=== PATIENT | female | born 1995 | race Caucasian/White ===

== ENCOUNTER 2019-12-11 19:30 | Emergency (ER) | payer MEDICAID, SELFPAY | END 2019-12-11 19:52 | disposition other institution (70) | LOC: ER 03-21 12:11 | PROVIDERS: Emergency Provider Emergency Medicine | DX: Z53.8 Procedure and treatment not carried out for other reasons (principal) | CPT/HCPCS: 99281 ==

== ENCOUNTER 2019-12-11 19:58 | Outpatient (CLI) | payer MEDICAID, SELFPAY ==
[2019-12-11 20:00] VITALS: RESP 18; TEMP 36.8
[2019-12-11 20:33] VITALS: BMI 59.4
[2019-12-11 20:37] LABS: Add Urine Microscopic? NO
[2019-12-11 21:55] LABS: Bilirubin Urine Neg (NEGATIVE); Blood Urine Neg (Negative); Glucose Urine UA Norm (Normal); Ketones Urine Negative (Negative); Leukocyte Esterase Urine Negative (Negative); Nitrate Urine Negative (Negative); Protein Urine Neg (Negative); Specific Gravity, Urine 1.005 (1.005-1.030); Urine Appearance Clear (CLEAR); Urine Color Straw (Yellow); Urobilinogen Urine Norm (Negative); pH Urine 7 (5-7)
== END 2019-12-11 22:05 | disposition home or self-care (01) ==
LOC: OPOB 20:04 → OBGYN 20:04
PROVIDERS: Visit Provider Family Medicine
DX: O26.899 Other specified pregnancy related conditions, unspecified trimester (principal); Z3A.00 Weeks of gestation of pregnancy not specified; R10.30 Lower abdominal pain, unspecified
CPT/HCPCS: 81003; 99211

== ENCOUNTER 2020-02-08 09:10 | Outpatient (CLI) | payer MEDICAID, SELFPAY ==
[2020-02-08 09:49] LABS: Bilirubin Urine Neg (NEGATIVE); Blood Urine Neg (Negative); Glucose Urine UA Norm (Normal); Ketones Urine Negative (Negative); Leukocyte Esterase Urine Trace (Negative); Nitrate Urine Negative (Negative); Protein Urine Neg (Negative); Urine Appearance SL Hazy (CLEAR); Urine Color Yellow (Yellow); Urobilinogen Urine Norm (Negative)
[2020-02-08 09:50] LABS: Add Urine Culture? No; Bacteria Urine 2+; Mucus Urine 1+; RBC Urine RARE /hpf (0-2); WBC Urine 0-4 /hpf (0-5)
[2020-02-08 09:55] VITALS: BP 125/78; PULSE 69; RESP 18; TEMP 36.7
[2020-02-08 10:05] VITALS: BMI 29.3
--- NOTE | 2020-02-08 10:25 | PC.NURSE ---
THIS SPINNER HAND PUT PATIENT ON MONITOR AT 0925. 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
== END 2020-02-08 10:25 | disposition home or self-care (01) ==
LOC: OPOB 09:20 → OBGYN 02-09 07:49
PROVIDERS: Visit Provider Obstetrics & Gynecology
DX: O23.40 Unspecified infection of urinary tract in pregnancy, unspecified trimester (principal); Z3A.00 Weeks of gestation of pregnancy not specified
CPT/HCPCS: 59025; 81001; 99211

== ENCOUNTER → 2020-02-09 11:09 | Outpatient (BNVA) | payer MEDICAID, SELFPAY | PROVIDERS: Visit Provider Obstetrics & Gynecology | DX: Z34.90 Encounter for supervision of normal pregnancy, unspecified, unspecified trimester (principal); R30.0 Dysuria | CPT/HCPCS: 80053; 81000 ==

== ENCOUNTER 2020-02-14 02:11 | Inpatient (IN) | payer MEDICAID, SELFPAY ==
[2020-02-14] VITALS (39 sets, daily range): BP systolic 0–182; BP diastolic 0–104; PULSE 51–86; RESP 18; TEMP 36.8–37; O2SAT 99
--- NOTE | 2020-02-14 03:31 | US_ITS ---
WS: [id number] ULTRASOUND OB LIMITED TECHNIQUE: Limited ultrasound examination of the fetus. CLINICAL INFORMATION: measurements and placental placement COMPARISON: None. FINDINGS: Closed cervix Single interuterine gestation. Placental location is posterior. Placenta grade: 0. heart rate 136 BPM. Anatomy: BDP: 8.4 cm = HC: 29.9 cm = 33w1d AC: 29.5 cm = 33w3d FEMUR LENGTH: 6.2 cm = 32w2d Estimated weight: 2119 g., 57 %. EGA by ultrasound: 33 weeks 1 day SIMON by ultrasound: 04/02/2020 US/US OB limited [id number] IMPRESSION: 1. Cervix measures 4.2 CM. 2. Estimated gestational age 33 weeks 1 day with estimated delivery April 02, 2020. 3. Normal for dates.
[2020-02-14 04:05] LABS: Actim Prom Positive
[2020-02-14 04:15] LABS: Urine Color Yellow (Yellow)
[2020-02-14 04:16] LABS: Add Urine Microscopic? YES; Bacteria Urine TRACE; Bilirubin Urine Neg (NEGATIVE); Blood Urine Neg (Negative); Glucose Urine UA Norm (Normal); Ketones Urine Negative (Negative); Leukocyte Esterase Urine Negative (Negative); Nitrate Urine Negative (Negative); Protein Urine 2+ (Negative); RBC Urine RARE /hpf (0-2); Squamous Epithelial Cell Urine 0-4 (0-5); Urine Appearance Clear (CLEAR); Urobilinogen Urine Norm (Negative); WBC Urine 0-4 /hpf (0-5); pH Urine 6.5 (5-7)
[2020-02-14 05:25] LABS: Urine Creatinine 56 mg/dL (28-217)
[2020-02-14 05:38] LABS: UPRO/UCREAT Ratio 2.93 mg/mg CR; Urine Protein Random 164 mg/dL
[2020-02-14] MEDS: betamethasone susp 6 mg/mL 5 mL 12 MG IM ×2 (06:09→06:19)
--- NOTE | 2020-02-14 06:20 | PM.OBGYHP ---
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 She presented to labor and delivery at 02:10 on 02/14/2020 with complaint of vaginal bleeding. She reported that approximately 01:30 this morning, she had gotten up to urinate and while sitting on the toilet, thought something felt weird. When she looked in the toilet she stated that the toilet was full of blood . She reported that she was having mild back pain at the time. She denied any injuries or falls. She reported the baby had been moving well. On arrival at the hospital she was found to have blood present on her perineum with blood present on vaginal exam by the nurse. As she was being monitored, she was noted to have elevated blood pressures and these had continued to increase until they were considered in the severe range. As a result preeclamptic labs were ordered. At the time of my evaluation, patient was reporting having more lower back pain and was now starting to have some abdominal pain as well. She stated that her abdominal pain was mainly located on the left side. She denied any headaches, vision changes, upper abdominal pain prior to the recent start of the abdominal pain in the hospital. She reported some mild swelling. Patient had been receiving care at the [facility] in [place] and recently transferred to my care due to having moved to the area. She had her first visit in my office on 02/09/2020. Some records were available from the [facility], but this mainly included the initial visit and initial labs. Rest of the records have been requested but have not been received yet. Available Labs === Lab results from [facility] === 10/04/2019 Blood type: O positive. Antibody screen: Negative. Intake CBC: WBC 6.5, Hgb 13.2, Hct 38.9, MCV 87.2, Plt 176. TSH: 3.50. Free T4: 1.15. Rubella: Immune. Hepatitis B surface antigen: Nonreactive. RPR: Nonreactive. HIV: Nonreactive. Cystic fibrosis screen: Declined. Urine drug screen: Not performed. Urine culture: No growth. Gonorrhea: Negative. Chlamydia: Negative. Pap smear: Negative for intraepithelial lesion or malignancy. Obstetrical Ultrasounds No ultrasound reports were sent with the records. These had been requested at last visit. Review of Systems Const: Denies: fever(s) or chills Eyes: Denies: change in vision ENMT: Denies: throat pain or nasal congestion Card: Reports: swelling of feet/ankles; Denies: chest pain, palpitations or lightheadedness Resp: Denies: dyspnea, productive cough, non-productive cough or wheezing GI: Reports: abdominal pain; Denies: nausea, vomiting, diarrhea or constipation : Reports: urinary frequency and vaginal bleeding; Denies: difficulty voiding, dysuria, urinary urgency, genital pruritis or vaginal discharge Musc: Reports: back pain Neuro: Denies: headache(s), dizziness or seizure-like activity Psych: Denies: anxiety or depression Endo: Denies: cold intolerance Edgardo/Lymph: Denies: easy bruising or easy bleeding Medications/Allergies Home Medications Medication Instructions Recorded Confirmed Last Taken Type [id number] See Rx Instructions .ROUTE .COMPLEX 12/11/19 02/09/20 02/13/20 22:00 History [] Allergies Allergy/AdvReac Type Severity Reaction Status Date / Time No Known Allergies Allergy Verified 02/09/20 11:26 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 Surgical History History of tonsillectomy age 8 Family History Grandmother Cancer Breast Grandfather Dementia Father Diabetes Social History Smoking and tobacco status: never smoked Alcohol intake: current Alcohol intake frequency: holidays/special occasions only Substance/Drug Use: never Other details last substance use: Denies drug use Other Female Reproductive History: Hx Age of Menarche: 13 Duration of menses: 3-5 days Date of Last Menstrual Period: 06/18/19 Cycle Length: 28 to 30 d Menstrual flow: normal/abnormal: heavy History History History 1 Term 0 Miscarriages/Ectopic 0 0 Living Children 0 Care SIMON Calculator Estimated Delivery Date Method Current WG Current Estimate 03/30/20 Manual 33w 4d per patient Other Estimates 03/24/20 LMP (Uncertain) 34w 3d Expected Delivery Route/Plan Vaginal delivery Specific Issues/Plans Transfer of care from [facility] at 32 weeks Hypothyroidism. Vitals/I&O/Wt Last Vital Signs Temp 98.5 F 02/14/20 02:38 Pulse 51 L 02/14/20 06:07 BP 182/104 02/14/20 06:07 Physical Exam Const: COMMON NORMALS: no acute distress, average body habitus, alert and well nourished GENERAL APPEARANCE: cooperative, well developed and anxious ORIENTATION/CONSCIOUSNESS: Yes oriented to person, Yes oriented to place and Yes oriented to time Neck/C-Spine: COMMON NORMALS: Thyroid normal GENERAL: Yes trachea midline THYROID: Thyroid normal Resp: COMMON NORMALS: normal respiratory effort and clear to auscultation bilaterally AUSCULTATION: clear to auscultation bilaterally Cardio: COMMON NORMALS: regular rate, regular rhythm, No gallops present (Cardio) and No rub (Cardio) RATE: regular rate RHYTHM: regular rhythm GI: COMMON NORMALS: Soft to palpation, non-tender, No hepatosplenomegaly present and no masses (Except for gravid uterus) INSPECTION: Yes gravid abdomen AUSCULTATION: Yes normoactive bowel sounds PALPATION: Yes Soft to palpation, Yes No hepatosplenomegaly present and No Hernia present : EXTERNAL FEMALE EXAM: No Hernia present OTHER: Uterus: Tender to palpation Neuro: SENSORIUM/ORIENTATION: Yes alert, Yes oriented to person, Yes oriented to place and Yes oriented to time Psych: COMMON NORMALS: normal affect MOOD & AFFECT: Yes euthymic mood Skin: COMMON NORMALS: no rashes or lesions noted GENERAL SKIN EXAM: no rashes or lesions noted Data Other Labs: 02/14/2020 Urine dipstick (catheterized): Specific gravity 1.010, protein 2+, glucose negative, ketones negative, urine blood negative, nitrate negative, leukocyte esterase negative, RBCs rare, WBC 0-4, squamous cells 0-4, bacteria trace. Urine protein/creatinine ratio (catheterized): 2.93 US OB: My impression: 02/14/2020: Limited obstetrical ultrasound 33-1/7 weeks gestation based on measurements today. Estimated weight 4 lbs 11 oz (2119 g). 49th percentile. Cephalic presentation. heart rate 136 bpm. Posterior placenta without previa. No evidence of abruption seen on ultrasound. Cervix 4.2 cm in length and visually closed. Other data: monitoring: heart rate in the 130s with moderate variability and accelerations present. No decelerations noted. Category 1 tracing. Irregular contractions present. A&P Assessment and plan (1) Severe pre-eclampsia, third trimester: at 33-4/7 weeks gestation Patient found to have elevated blood pressures in L&D which have reached severe ranges with systolic blood pressures in the 160s to 170s with diastolic blood pressures in the 90s to 100s. Urine dipstick had shown 2+ protein on a catheterized sample. Urine protein/creatinine ratio was 2.9. Based upon these findings, she has been diagnosed with severe preeclampsia. This diagnosis was discussed with the patient and her partner. Problems associated with preeclampsia including seizures, strokes, vision loss, pulmonary edema, liver and spleen problems, low urine output and acute renal failure was discussed. Potential this causing placental abruption was also discussed. Discussed with her that cure for preeclampsia is delivery, but timing of delivery depends upon gestational age and severity of symptoms. Medication use for control of blood pressure was discussed. Use of magnesium sulfate for prevention of seizures and its side effects were discussed. Questions were answered. Due to her early gestational age, I am recommending referral [facility] that has ICU facilities due to the probable early delivery. Questions were answered. Patient and her partner are requesting referral to [facility] in [place] since she was originally being followed through 1 of the [facility] clinics before transferring to our area. She is being started on magnesium sulfate, 4 g load and then 2 g/h. Labetalol has been ordered for blood pressure control. CBC, CMP, and serum uric acid have been ordered and are pending. Betamethasone 12 mg IM has been ordered and given due to prematurity and probable need for early delivery. Ampicillin has been ordered due to unknown GBS status since she has not had the testing performed yet. Status: Acute (2) Placental abruption in third trimester: Patient presented with vaginal bleeding and back pain. She is now developed uterine tenderness on exam. These are all findings that are consistent with placental abruption. With her diagnosis of severe preeclampsia the abruption most likely is secondary to the preeclampsia. Other potential causes for abruption were discussed with her. Questions were answered. Ultrasound had been performed which showed a posterior placenta without previa. No evidence of abruption seen on the ultrasound. Status: Acute (3) Hypothyroidism affecting : Patient has hypothyroidism. She reports she has not taken her medication for approximately 2 months at this time. Status: Acute Qualifiers: Trimester: third trimester Qualified Code(s): O99.283 - Endocrine, nutritional and metabolic diseases complicating , third trimester; E03.9 - Hypothyroidism, unspecified Attestations Medical Necessity Statement*: Patient has been diagnosed with severe preeclampsia with placental abruption. 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
[2020-02-14] MEDS: labetalol 5 mg/mL SDV 20mL 20 MG IVP (06:32)
[2020-02-14] MEDS: magnesium sulfate premix 4 GM/100 ML PREMIX IV (06:47)
[2020-02-14] MEDS: dextrose 5%-lactated ringers 1,000 ML 125 ML IV (06:47)
[2020-02-14 06:53] LABS: Basophils # 0.1 10^3/uL (0.0-0.1); Basophils % 0.6 %; Eosinophils # 0.2 10^3/uL (0.0-0.8); Eosinophils % 1.9 %; Hematocrit 38.3 % (37.0-47.0); Hemoglobin 12.9 g/dL (11.5-15.3); Lymphocytes # 2.6 10^3/uL (0.8-4.8); Mean Corpuscular HGB Conc 33.7 g/dL (30.0-36.0); Mean Corpuscular Hemoglobin 30.1 pg (28.0-34.0); Mean Corpuscular Volume 89.3 fL (81-99); Mean Platelet Volume 12.3 fL (7.4-10.4); Monocytes # 0.7 10^3/uL (0.2-0.9); Monocytes % 6.8 %; Neutrophils # 6.47 10^3/uL (1.8-7.7); Neutrophils % 64.4 %; Nucleated Red Blood Cells % 0 %; Platelet Count 98 10^3/cmm (130-400); Red Blood Count 4.29 10^6/uL (4.1-5.3); Red Cell Distribution Width 14.2 % (12.1-15.1)
[2020-02-14] MEDS: ampicillin 2,000 MG in sodium chloride 0.9% (plus) 50 ML 100 MG IV (06:54)
[2020-02-14 07:02] LABS: Alanine Aminotransferase 34 U/L (0-33); Albumin Level 3.4 g/dL (3.5-5.2); Alkaline Phosphatase 140 IU/L (35-105); Anion Gap 13.8 (5-19); Aspartate Amino Transferase 34 U/L (0-32); Blood Urea Nitrogen 7 mg/dL (6-20); Calcium 8.8 mg/dL (8.5-10.5); Carbon Dioxide 19 mmol/L (22-29); Chloride 107 mmol/L (98-107); Globulin 2.5 g/dL (1.3-4.6); Glomerular Filtration Rate 152.9 mL/min (90-130); Glucose 82 mg/dL (65-115); Osmolality Calculated 277 mOsm/kg (285-295); Potassium 3.8 mmol/L (3.5-5.1); Sodium 136 mmol/L (136-145); Total Bilirubin 0.3 mg/dL (0.15-1.2); Total Protein 5.9 g/dL (6.6-8.7); Uric Acid 5.9 mg/dL (2.4-5.7)
[2020-02-14] MEDS: magnesium sulfate premix 20 GM/500 ML BAG IV (07:09)
--- NOTE | 2020-02-14 09:34 | P.TS_ITS ---
Transfer Summary Providers Date of Admission: 02/14/2020 Date of Discharge: 02/14/20 Attending Provider at Admission: Devaughn Avina MD Attending Provider at Transfer: Devaughn Avina MD Anticipated Date of Transfer: Anticipated date of transfer: 02/14/20 Receiving Facility & Provider: Receiving Provider: Dr. Boone Receiving facility: [facility] in [place], [place] Diagnoses at Discharge Discharge Diagnosis (1) Severe pre-eclampsia, third trimester: Status: Acute (2) Placental abruption in third trimester: Status: Acute (3) Hypothyroidism affecting : Status: Acute Qualifiers: Trimester: third trimester Qualified Code(s): O99.283 - Endocrine, nutritional and metabolic diseases complicating , third trimester; E03.9 - Hypothyroidism, unspecified Reason for Visit Reason for Visit: VAGINAL BLEEDING Hospital Course Hospital Course: Patient is a 24-year-old white female, 1, para 0 with an unsure LMP of 06/18/2019 and an EDC of 03/30/2020 per her report, which placed her at 33-4/7 weeks gestation. She presented to labor and delivery complaining of vaginal bleeding. She had gotten up to urinate and noticed afterwards that the toilet was full of blood . She then came to labor and delivery. She was found to have blood present on her perineum with blood present vaginally per the nurse. As she was being monitored, she was noted to have elevated blood pressures which increased and were found to be in the severe range. Protein creatinine ratio was performed which was 2.93. Based upon this she was diagnosed with severe preeclampsia. She was felt to also most likely to have had a mild placental abruption. Patient was started on magnesium sulfate for seizure prophylaxis. She received a 4 g load and then switched to 2 g/h. She also received her first dose of betamethasone 12 mg IM and was then started on ampicillin due to unknown GBS status. Her blood pressure was treated with labetalol. She received 1 dose of 20 mg. She had an ultrasound performed which showed a cephalic presentation. She had a posterior placenta without previa noted. No evidence of abruption seen on the ultrasound. Laboratory data had shown low platelets of 98,000 with minimally elevated liver enzymes (AST of 34 and ALT of 34). At this point patient is stable. She is having rare contractions at this time. She has a category 1 heart rate tracing with baseline heart rate in the 130s with minimal variability at this time. Accelerations are present. No decelerations were noted. Blood pressure is no longer in the severe range. Due to prematurity, transferred to higher level care facility with NICU capabilities have been discussed with the patient and her partner. They have requested transfer to [facility] in [place] since she had been receiving care through the [facility] in [place] prior to our area and transferring care to myself. [facility] was contacted and the case was discussed with Dr. Boone who has accepted care. Arrangements are being made for ground transport. Magnesium load started at 06:47 Betamethasone given at 06:09 Ampicillin started for GBS prophylaxis at 06:54 Labetalol given at 06:52 Physical Exam Const: COMMON NORMALS: no acute distress, average body habitus, alert and well nourished GENERAL APPEARANCE: well developed ORIENTATION/CONSCIOUSNESS: Yes oriented to person, Yes oriented to place and Yes oriented to time GI: COMMON NORMALS: Soft to palpation, non-tender, No hepatosplenomegaly present and no masses (Except for tender gravid uterus) INSPECTION: Yes gravid abdomen AUSCULTATION: Yes normoactive bowel sounds PALPATION: Yes Soft to palpation, Yes No hepatosplenomegaly present and No Hernia present : EXTERNAL FEMALE EXAM: No Hernia present Neuro: SENSORIUM/ORIENTATION: Yes alert, Yes oriented to person, Yes oriented to place and Yes oriented to time Psych: COMMON NORMALS: normal affect MOOD & AFFECT: Yes euthymic mood TS Data Data Completed and Pending: Completed Studies During Hospitalization Category Date Time Status US OB limited 768 15 Routine Ultrasound 02/14/20 03:31 Completed Pending at discharge Category Date Time Status Drug Screen, Urin e Routine Lab 02/14/20 06:10 Uncollected Labs from last 24 hours 02/14/20 02/14/20 02/14/20 06:20 06:20 03:00 WBC 10.0 RBC 4.29 Hgb 12.9 Hct 38.3 MCV 89.3 MCH 30.1 MCHC 33.7 RDW 14.2 Plt Count 98 L MPV 12.3 H Neut % (Auto) 64.4 Lymph % (Auto) 26.0 [place] % (Auto) 6.8 Eos % (Auto) 1.9 Baso % (Auto) 0.6 Neut # (Auto) 6.47 Lymph # (Auto) 2.6 [place] # (Auto) 0.7 Eos # (Auto) 0.2 Baso # (Auto) 0.1 Nucleated RBC % (a uto) 0 Nucleated RBCs # 0.0 Sodium 136 Potassium 3.8 Chloride 107 Carbon Dioxide 19 L Anion Gap 13.8 BUN 7 Creatinine 0.5 GFR Calculation 152.9 H Glucose 82 Calculated Osmolal ity 277 L Uric Acid 5.9 H Calcium 8.8 Total Bilirubin 0.3 AST 34 H ALT 34 H Alkaline Phosphata se 140 H Total Protein 5.9 L Albumin 3.4 L Globulin 2.5 Insulin-like GF I Urine Color Urine Appearance Urine pH Ur Specific Gravit y Urine Protein Urine Glucose (UA) Urine Ketones Urine Blood Urine Nitrate Urine Bilirubin Urine Urobilinogen Ur Leukocyte Tena ase Urine RBC Urine WBC Ur Squamous Epith Cells Amorphous Sediment Urine Bacteria U Random Total Pro tein 164 Urine Creatinine 56 Protein/Creatinin Ratio 2.93 02/14/20 02/14/20 03:00 03:00 WBC RBC Hgb Hct MCV MCH MCHC RDW Plt Count MPV Neut % (Auto) Lymph % (Auto) [place] % (Auto) Eos % (Auto) Baso % (Auto) Neut # (Auto) Lymph # (Auto) [place] # (Auto) Eos # (Auto) Baso # (Auto) Nucleated RBC % (a uto) Nucleated RBCs # Sodium Potassium Chloride Carbon Dioxide Anion Gap BUN Creatinine GFR Calculation Glucose Calculated Osmolal ity Uric Acid Calcium Total Bilirubin AST ALT Alkaline Phosphata se Total Protein Albumin Globulin Insulin-like GF I Positive Urine Color Yellow Urine Appearance Clear Urine pH 6.5 Ur Specific Gravit y 1.010 Urine Protein 2+ H Urine Glucose (UA) Norm Urine Ketones Negative Urine Blood Neg Urine Nitrate Negative Urine Bilirubin Neg Urine Urobilinogen Norm Ur Leukocyte Tena ase Negative Urine RBC Rare Urine WBC 0-4 H Ur Squamous Epith Cells 0-4 H Amorphous Sediment Not Reportable Urine Bacteria Trace U Random Total Pro tein Urine Creatinine Protein/Creatinin Ratio Vitals: Last Vital Signs Temp 98.5 F 02/14/20 02:38 Pulse 69 02/14/20 09:23 BP 133/82 02/14/20 09:23 TS Medications Medications Home Medications [id number] fumarate-FA [] See Rx Instructions .ROUTE .COMPLEX 12/11/19 [History Confirmed 02/09/20] Active Medications Acetaminophen (Tylenol) 650 mg PO Q6H PRN PRN Reason: Mild pain or temp > 100.4 Al Hydrox/Mg Hydrox/Simethicone (Maalox) 30 ml PO Q4H PRN PRN Reason: INDIGESTION Calcium Gluconate (Calcium Gluconate) 1 gm IVP ONCE PRN PRN Reason: Reversal of Magnesium Sulfate Carboprost Tromethamine (Hemabate) 250 mcg IM ONCE PRN PRN Reason: 3rd line bleeding Ephedrine Sulfate (Ephedrine) 10 mg IVP Q3M PRN PRN Reason: hypotension as directed by Hydroxyzine Pamoate (Vistaril) 50 mg PO QID PRN PRN Reason: sleep, agitation or itching Dextrose/Lactated Ringer's (Dextrose 5%-Lactated Ringers) 1,000 mls @ 125 mls/hr IV .Q8H [facility] Last Admin: 02/14/20 06:47 Dose: 125 mls/hr Documented by: Magnesium Sulfate (Magnesium Sulfate Premix) 20 gm in 500 mls @ 50 mls/hr IV .Q10H [facility] Last Admin: 02/14/20 07:09 Dose: 50 mls/hr Documented by: Oxytocin (Pitocin) 30 unit in 500 mls @ 600 mls/hr IV .Q50M PRN; Protocol PRN Reason: After delivery of infant Lactated Ringer's (Lactated Ringers) 1,000 mls @ 999 mls/hr IV .Q1H1M PRN PRN Reason: BLEEDING Lactated Ringer's (Lactated Ringers) 1,000 mls @ 999 mls/hr IV .Q1H1M PRN PRN Reason: Per L&D Rescitation Protocol Tranexamic Acid 1,000 mg/ (Sodium Chloride) 110 mls @ 330 mls/hr IV Q30M PRN PRN Reason: BLEEDING Ampicillin Sodium 2,000 mg/ (Sodium Chloride) 50 mls @ 100 mls/hr IV ONCE [facility]; Protocol Last Admin: 02/14/20 06:54 Dose: 100 mls/hr Documented by: Lidocaine HCl (Lidocaine 2%) 0 ml INJECTION ONCE PRN PRN Reason: perineum repair after delivery Lidocaine HCl (Lidocaine 1%) 0.1 ml INTRADERMA PRN PRN PRN Reason: Anesthetic Prior to IV start Metoclopramide HCl (Reglan) 10 mg IV ONCE PRN PRN Reason: N/V not relieved by zofran Misoprostol (Cytotec) 800 mcg SC ONCE PRN PRN Reason: 1st line bleeding Ondansetron HCl (Zofran) 4 mg IVP Q4H PRN PRN Reason: NAUSEA AND VOMITING Oxytocin (Pitocin) 20 unit IM ONCE PRN PRN Reason: 4th line bleeding Oxytocin (Pitocin) 20 unit IV ONCE PRN PRN Reason: 4th line bleeding Discharge Plan Discharge Patient Disposition: Xfer Other Prescriptions: No Action 28-800 mg-mcg Tablet See Rx Instructions .ROUTE .COMPLEX RF: 0 Discharge Orders: Transfer Out of Facility (Order); Ordered 02/14/20 Ordered By: Devaughn Avina Transfer Attestations Time Spent in Transfer Care*: less than 30 min Status at Transfer: Cognitive status at transfer: cognitively intact , Behavioral status at transfer: cooperative , Quality Metrics Clinical Quality Measures: During this hospital stay, did patient experience: None Coding Level of Care Code 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
== END 2020-02-14 10:15 | disposition short-term general hospital (02) | DRG 833 ==
LOC: OPOB 02:23 → OBGYN 08:53 → OPOB 11:05 → OBGYN 11:05
PROVIDERS: Admitting Provider Obstetrics & Gynecology; Visit Provider Obstetrics & Gynecology
DX: O45.8X3 Other premature separation of placenta, third trimester (principal); Z3A.33 33 weeks gestation of pregnancy; O14.14 Severe pre-eclampsia complicating childbirth; O99.283 Endocrine, nutritional and metabolic diseases complicating pregnancy, third trimester; E03.9 Hypothyroidism, unspecified
CPT/HCPCS: 12345; 36415; 51702; 59025; 76815; 80053; 81001; 81003; 82570; 84112; 84156; 84550; 85025; 96372; 96375; J0290; J0702; J3475; J3490

== ENCOUNTER 2020-09-02 07:20 | Emergency (ER) | payer MEDICAID, SELFPAY ==
[2020-09-02 07:31] VITALS: BP 126/72; PULSE 87; RESP 16; TEMP 36.2; O2SAT 99; BMI 25.0
[2020-09-02 07:39] VITALS: O2SAT 100
--- NOTE | 2020-09-02 07:41 | ED_ITS ---
HPI - Abdominal Pain General: Chief Complaint: Abdominal Pain Stated Complaint: Rt side ABD pain Time Seen by Provider: 09/02/20 07:22 History of Present Illness: HPI narrative: 24-year-old female presents emergency room with complaints of right lower quadrant abdominal pain that began around 330 this morning. She states she can get a little improvement with the change she massages in that area she denies fever sweats chills nausea vomiting or diarrhea. No dysuria urgency or frequency no hematuria. She states her periods have been regular she does not believe she is at this time. She is not had any fever she has no significant appetite. MD elicited complaint: abdominal pain Onset (ago): hour(s) Pain Consistency: constant Location: RLQ Severity: moderate Quality: cramping Exacerbating factors: movement and other (palpation) Relieving factors: rest Associated Symptoms: Reports anorexia, bloating and GI cramping; Denies belching, change in bowel habits, change in stool character, chills, coffee ground emesis, constipation, diarrhea, dyspepsia, dysuria, excessive flatus, fever(s), heartburn, hematochezia, hematuria, hematemesis, fecal incontinence, loose stools, melena, nausea, poor appetite, syncope and vomiting Related Data: Date of Last Menstrual Period: 08/26/20 Review of Systems Const: Denies: fever(s) or chills ENMT: Denies: throat pain, ear or mastoid pain, nasal discharge or nasal congestion Card: Denies: syncope Resp: Denies: dyspnea, productive cough or non-productive cough GI: Reports: bloating and GI cramping; Denies: nausea, vomiting, hematemesis, coffee ground emesis, heartburn, diarrhea, constipation, belching, excessive flatus, fecal incontinence, change in bowel habits, change in stool character, hematochezia or melena : Denies: dysuria or hematuria Skin/Breast: Denies: rash or pruritus PFSH ED PFSH: Medical History (Updated 09/02/20 @ 09:16 by Derek Devlin DO) Hypothyroid Per records, patient had been taking [place] Thyroid. Surgical History History of tonsillectomy age 8 Family History Grandmother Cancer Breast Grandfather Dementia Father Diabetes Social History Smoking and tobacco status: never smoked Alcohol intake: current Alcohol intake frequency: holidays/special occasions only Other details last substance use: Denies drug use Female Reproductive History: Date of last menstrual period: 08/26/20 Physical Exam Const: COMMON NORMALS: no acute distress GENERAL APPEARANCE: cooperative and comfortable ORIENTATION/CONSCIOUSNESS: Yes awake, Yes oriented to person, Yes oriented to place and Yes oriented to time HENMT: COMMON NORMALS: normocephalic, atraumatic and hearing grossly normal bilaterally HEAD & SCALP: normocephalic and atraumatic Neck/C-Spine: COMMON NORMALS: no JVD Resp: COMMON NORMALS: normal respiratory effort, No retractions, No use of accessory muscles and clear to auscultation bilaterally AUSCULTATION: clear to auscultation bilaterally Cardio: COMMON NORMALS: no JVD, regular rate, regular rhythm and No murmurs present (Cardio) RATE: regular rate RHYTHM: regular rhythm GI: COMMON NORMALS: No hepatosplenomegaly present AUSCULTATION: Yes normoactive bowel sounds PALPATION: Yes Tenderness to palpation present (GI) Details: RLQ and Yes No hepatosplenomegaly present Extremity: COMMON NORMALS: normal to inspection, capillary refill normal, no clubbing, cyanosis or edema, no calf tenderness and no pedal edema Neuro: SENSORIUM/ORIENTATION: Yes oriented to person, Yes oriented to place and Yes oriented to time Skin: COMMON NORMALS: no rashes or lesions noted GENERAL SKIN EXAM: no rashes or lesions noted Course Vital Signs: Vital signs: Vital Signs Temperature 97.2 F L 09/02/20 07:31 Pulse Rate 84 09/02/20 09:40 Respiratory Rate 16 09/02/20 07:31 Blood Pressure 175/90 09/02/20 09:40 Pulse Oximetry 98 09/02/20 09:40 MDM - Abdominal Pain MDM Narrative: Medical decision making narrative: There are some constipation additionally she has a little bit of pelvic fluid she is midcycle. Treat for cystitis push fluids if has any worsening problems recheck Lab Data: Labs: Lab Results 09/02/20 09/02/20 09/02/20 Range/Units 07:45 07:45 07:45 WBC 8.8 (4.0-10.0) 10^3/ uL RBC 4.65 (4.1-5.3) 10^6/u L Hgb 13.5 (11.5-15.3) g/dL Hct 40.8 (37.0-47.0) % MCV 87.7 (81-99) fL MCH 29.0 (28.0-34.0) pg MCHC 33.1 (30.0-36.0) g/dL RDW 12.4 (12.1-15.1) % Plt Count 202 (130-400) 10^3/c mm MPV 10.0 (7.4-10.4) fL Neut % (Auto) 65.5 % Lymph % (Auto) 23.6 % [place] % (Auto) 8.0 % Eos % (Auto) 2.1 % Baso % (Auto) 0.5 % Neut # (Auto) 5.74 (1.8-7.7) 10^3/u L Lymph # (Auto) 2.1 (0.8-4.8) 10^3/u L [place] # (Auto) 0.7 (0.2-0.9) 10^3/u L Eos # (Auto) 0.2 (0.0-0.8) 10^3/u L Baso # (Auto) 0.0 (0.0-0.1) 10^3/u L Nucleated RBC % (a uto) 0 % Nucleated RBCs # 0.0 /100WBC Sodium 137 (136-145) mmol/L Potassium 3.6 (3.5-5.1) mmol/L Chloride 104 (98-107) mmol/L Carbon Dioxide 25 (22-29) mmol/L Anion Gap 11.6 (5-19) BUN 7 (6-20) mg/dL Creatinine 0.5 (0.5-0.9) mg/dL GFR Calculation 152.9 H (90-130) mL/min Glucose 102 (65-115) mg/dL Calculated Osmolal ity 282 L (285-295) mOsm/k g Calcium 9.1 (8.5-10.5) mg/dL Total Bilirubin 0.4 (0.15-1.2) mg/dL AST 15 (0-32) U/L ALT 16 (0-33) U/L Alkaline Phosphata se 69 (35-105) IU/L Total Protein 6.8 (6.6-8.7) g/dL Albumin 4.1 (3.5-5.2) g/dL Globulin 2.7 (1.3-4.6) g/dL Lipase 15 (13-60) U/L HCG, Qual Negative (Negative) Urine Color (Yellow) Urine Appearance (CLEAR) Urine pH (5-7) Ur Specific Gravit y (1.005-1.030) Urine Protein (Negative) Urine Glucose (UA) (Normal) Urine Ketones (Negative) Urine Blood (Negative) Urine Nitrate (Negative) Urine Bilirubin (Negative) Urine Urobilinogen (Negative) mg/dL Ur Leukocyte Tena ase (Negative) Urine RBC (0-2) /hpf Urine WBC (0-5) /hpf Ur Squamous Epith Cells (0-5) /hpf Amorphous Sediment Urine Bacteria (NONE) /hpf 09/02/20 Range/Units 07:51 WBC (4.0-10.0) 10^3/ uL RBC (4.1-5.3) 10^6/u L Hgb (11.5-15.3) g/dL Hct (37.0-47.0) % MCV (81-99) fL MCH (28.0-34.0) pg MCHC (30.0-36.0) g/dL RDW (12.1-15.1) % Plt Count (130-400) 10^3/c mm MPV (7.4-10.4) fL Neut % (Auto) % Lymph % (Auto) % [place] % (Auto) % Eos % (Auto) % Baso % (Auto) % Neut # (Auto) (1.8-7.7) 10^3/u L Lymph # (Auto) (0.8-4.8) 10^3/u L [place] # (Auto) (0.2-0.9) 10^3/u L Eos # (Auto) (0.0-0.8) 10^3/u L Baso # (Auto) (0.0-0.1) 10^3/u L Nucleated RBC % (a uto) % Nucleated RBCs # /100WBC Sodium (136-145) mmol/L Potassium (3.5-5.1) mmol/L Chloride (98-107) mmol/L Carbon Dioxide (22-29) mmol/L Anion Gap (5-19) BUN (6-20) mg/dL Creatinine (0.5-0.9) mg/dL GFR Calculation (90-130) mL/min Glucose (65-115) mg/dL Calculated Osmolal ity (285-295) mOsm/k g Calcium (8.5-10.5) mg/dL Total Bilirubin (0.15-1.2) mg/dL AST (0-32) U/L ALT (0-33) U/L Alkaline Phosphata se (35-105) IU/L Total Protein (6.6-8.7) g/dL Albumin (3.5-5.2) g/dL Globulin (1.3-4.6) g/dL Lipase (13-60) U/L HCG, Qual (Negative) Urine Color Yellow (Yellow) Urine Appearance Sl hazy (CLEAR) Urine pH 5 (5-7) Ur Specific Gravit y 1.025 (1.005-1.030) Urine Protein Neg (Negative) Urine Glucose (UA) Norm (Normal) Urine Ketones Negative (Negative) Urine Blood Neg (Negative) Urine Nitrate Negative (Negative) Urine Bilirubin Neg (Negative) Urine Urobilinogen Norm (Negative) mg/dL Ur Leukocyte Tena ase 2+ H (Negative) Urine RBC None (0-2) /hpf Urine WBC 25-40 H (0-5) /hpf Ur Squamous Epith Cells 15-25 H (0-5) /hpf Amorphous Sediment Not Reportable Urine Bacteria 1+ H (NONE) /hpf Discharge Plan Discharge Patient Disposition: Home Clinical Impression: Cystitis Condition: Stable Prescriptions: New Macrobid 100 mg capsule 100 mg PO BID 7 Days Qty: 14 RF: 0 No Action norgestimate-ethinyl estradiol [Tri-Sprintec (28)] 0.18/0.215/0.25 mg-35 mcg (28) tablet 1 tab PO DAILY Qty: 84 RF: 3 escitalopram oxalate [Lexapro] 10 mg tablet 10 mg PO DAILY Qty: 30 RF: 12 28-800 mg-mcg Tablet See Rx Instructions .ROUTE .COMPLEX RF: 0 Discharge Orders: Discharge ED (Routine); Ordered 09/02/20 Ordered By: Derek Devlin Coding Level of Care Code ED College Football Coach for Chg Fwd Exam Comprehensive
[2020-09-02 08:04] LABS: Basophils % 0.5 %; Eosinophils # 0.2 10^3/uL (0.0-0.8); Eosinophils % 2.1 %; Hematocrit 40.8 % (37.0-47.0); Hemoglobin 13.5 g/dL (11.5-15.3); Lymphocytes # 2.1 10^3/uL (0.8-4.8); Lymphocytes % 23.6 %; Mean Corpuscular HGB Conc 33.1 g/dL (30.0-36.0); Mean Corpuscular Volume 87.7 fL (81-99); Monocytes # 0.7 10^3/uL (0.2-0.9); Neutrophils # 5.74 10^3/uL (1.8-7.7); Neutrophils % 65.5 %; Nucleated Red Blood Cells % 0 %; Platelet Count 202 10^3/cmm (130-400); Red Blood Count 4.65 10^6/uL (4.1-5.3); Red Cell Distribution Width 12.4 % (12.1-15.1); White Blood Count 8.8 10^3/uL (4.0-10.0)
[2020-09-02 08:22] LABS: Bilirubin Urine Neg (Negative); Blood Urine Neg (Negative); Glucose Urine UA Norm (Normal); Ketones Urine Negative (Negative); Nitrate Urine Negative (Negative); Protein Urine Neg (Negative); Specific Gravity, Urine 1.025 (1.005-1.030); Urine Appearance SL Hazy (CLEAR); Urine Color Yellow (Yellow); pH Urine 5 (5-7)
[2020-09-02 08:23] LABS: Add Urine Culture? No; Bacteria Urine 1+ /hpf; Leukocyte Esterase Urine 2+ (Negative); Squamous Epithelial Cell Urine 15-25 /hpf (0-5); Urobilinogen Urine Norm (Negative); WBC Urine 25-40 /hpf (0-5)
[2020-09-02 08:32] LABS: HCG, Serum Qual Negative (Negative)
[2020-09-02 08:37] VITALS: BP 108/57; PULSE 72; O2SAT 100
[2020-09-02 08:38] LABS: Alanine Aminotransferase 16 U/L (0-33); Albumin Level 4.1 g/dL (3.5-5.2); Alkaline Phosphatase 69 IU/L (35-105); Anion Gap 11.6 (5-19); Aspartate Amino Transferase 15 U/L (0-32); Blood Urea Nitrogen 7 mg/dL (6-20); Calcium 9.1 mg/dL (8.5-10.5); Carbon Dioxide 25 mmol/L (22-29); Chloride 104 mmol/L (98-107); Globulin 2.7 g/dL (1.3-4.6); Glomerular Filtration Rate 152.9 mL/min (90-130); Glucose 102 mg/dL (65-115); Lipase 15 U/L (13-60); Osmolality Calculated 282 mOsm/kg (285-295); Potassium 3.6 mmol/L (3.5-5.1); Sodium 137 mmol/L (136-145); Total Bilirubin 0.4 mg/dL (0.15-1.2); Total Protein 6.8 g/dL (6.6-8.7)
--- NOTE | 2020-09-02 08:38 | CT_ITS ---
WS: [id number] CT ABDOMEN AND PELVIS WITH CONTRAST HISTORY: Diffuse abdominal pain. TECHNIQUE: Imaging performed of the abdomen and pelvis with IV contrast. Single phase imaging of the abdomen. Coronal and sagittal reformats are submitted. All CT scans at [facility] use at least one of these dose optimization techniques: automated exposure control; mA and/or kV adjustment per patient size (includes targeted exams where dose is matched to clinical indication); or iterativ e reconstruction. IV CONTRAST: Omnipaque 300; 95 mL IV. Oral contrast: No DLP: 802.53 mGy.cm COMPARISON: None available. Lower thorax: Lung bases are clear. Heart is normal size. No hiatal hernia. Liver/biliary system: Normal size with no intrahepatic dilatation. Gallbladder: Normal. No gallstones or wall thickening. No pericholecystic fluid. Pancreas: Pancreas is poorly visualized in its entirety without oral contrast. Tail the pancreas sanya ot be from the GI tract. Spleen: Normal. Adrenal glands: Normal. Right kidney: Normal. Left kidney: Normal. Aorta: Normal. Lymphadenopathy: None. Free fluid: None. GI tract: The appendix is only partially visualized and extends towards the midline. No evidence for appendicitis or inflammation. No GI tract obstruction or wall thickening. Abdominal wall: Unremarkable abdominal wall. No hernia. Pelvis: Uterus is retroverted. Increase fluid along the endometrial canal. Bilateral ovarian cysts an d follicles. Physiologic free fluid. Bones: Unremarkable. CT/CT abdomen pelvis w con* [id number] IMPRESSION: 1. Small bilateral ovarian cysts and/or follicles. Physiologic free fluid in t he cul-de-sac. 2. No acute abdominal or pelvic abnormalities are identified. 3. The appendix is only partially visualized but there are no secondary findin gs of appendicitis. Notified Derek Devlin DO at 09/02/2020 9:14 AM.
[2020-09-02] MEDS: iohexol 300 mg/mL 100 mL Btl IV (08:53)
[2020-09-02 09:40] VITALS: BP 175/90; PULSE 84; O2SAT 98
== END 2020-09-02 09:40 | disposition home or self-care (01) ==
PROVIDERS: Physician Assistant; Emergency Provider Family Medicine
DX: N30.90 Cystitis, unspecified without hematuria (principal)
CPT/HCPCS: 12345; 74177; 80053; 81001; 83690; 84703; 85025; 99283; Q9967

== ENCOUNTER 2020-10-14 16:53 | Emergency (ER) | payer MEDICAID, SELFPAY ==
[2020-10-14 17:09] VITALS: BP 112/46; PULSE 97; RESP 18; TEMP 37.1; O2SAT 98
--- NOTE | 2020-10-14 17:20 | ECG_ITS ---
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 Measurements Intervals [place] Rate: 92 P: 39 SC: 128 QRS: 60 QRSD: 81 T: 29 QT: 349 QTc: 433 Interpretive Statements SINUS RHYTHM No previous ECG available for comparison Electronically Signed On 10-15-2020 0:01:46 CDT by Lucy Kumar M.D. [email or web address].[employer]/store/OM/[id number]
[2020-10-14 17:40] VITALS: RESP 16
[2020-10-14 17:46] LABS: Add Urine Microscopic? NO
[2020-10-14 17:46] LABS: Basophils % 0.5 %; Eosinophils # 0.2 10^3/uL (0.0-0.8); Eosinophils % 2.3 %; Hematocrit 45.3 % (37.0-47.0); Hemoglobin 14.9 g/dL (11.5-15.3); Lymphocytes # 1.8 10^3/uL (0.8-4.8); Lymphocytes % 21.6 %; Mean Corpuscular HGB Conc 32.9 g/dL (30.0-36.0); Mean Corpuscular Hemoglobin 29.3 pg (28.0-34.0); Mean Platelet Volume 10.5 fL (7.4-10.4); Monocytes # 0.7 10^3/uL (0.2-0.9); Monocytes % 8.5 %; Neutrophils # 5.52 10^3/uL (1.8-7.7); Neutrophils % 66.7 %; Nucleated Red Blood Cells % 0 %; Platelet Count 243 10^3/cmm (130-400); Red Blood Count 5.09 10^6/uL (4.1-5.3); Red Cell Distribution Width 13.1 % (12.1-15.1); White Blood Count 8.3 10^3/uL (4.0-10.0)
[2020-10-14 17:51] LABS: Bilirubin Urine Neg (Negative); Blood Urine Neg (Negative); Glucose Urine UA Norm (Normal); HCG Qualitative Urine. Negative (Negative); Ketones Urine Negative (Negative); Leukocyte Esterase Urine Negative (Negative); Nitrate Urine Negative (Negative); Protein Urine Neg (Negative); Urine Appearance Clear (CLEAR); Urine Color Yellow (Yellow); Urobilinogen Urine Norm (Negative); pH Urine 7 (5-7)
[2020-10-14 17:59] LABS: Amphetamines Screen Urine Negative (Negative); Barbiturates Screen Urine Negative (Negative); Benzodiazepines Screen Urine Negative (Negative); Cocaine Screen Urine Negative (Negative); Opiate Screen Urine Negative (Negative); PCP Screen Urine Negative (Negative); THC Screen Urine Negative (Negative)
[2020-10-14] MEDS: acetaminophen 325 mg Tablet 650 MG PO (18:15)
[2020-10-14 18:17] LABS: Alanine Aminotransferase 20 U/L (0-33); Albumin Level 4.6 g/dL (3.5-5.2); Alkaline Phosphatase 83 IU/L (35-105); Anion Gap 12.7 (5-19); Aspartate Amino Transferase 19 U/L (0-32); Blood Urea Nitrogen 8 mg/dL (6-20); Calcium 9.5 mg/dL (8.5-10.5); Carbon Dioxide 26 mmol/L (22-29); Chloride 104 mmol/L (98-107); Globulin 3.3 g/dL (1.3-4.6); Glomerular Filtration Rate 152.9 mL/min (90-130); Glucose 81 mg/dL (65-115); Osmolality Calculated 285 mOsm/kg (285-295); Potassium 3.7 mmol/L (3.5-5.1); Sodium 139 mmol/L (136-145); Thyroid Stimulating Hormone 1.76 uIU/mL (0.27-4.20); Total Bilirubin 0.3 mg/dL (0.15-1.2); Total Protein 7.9 g/dL (6.6-8.7)
[2020-10-14 18:19] LABS: Acetaminophen < 5.0 ug/mL (10-30); Alcohol Level < 10 mg/dL (0-10); Salicylate < 0.3 mg/dL (3-10)
--- NOTE | 2020-10-14 20:17 | W.ED.PSYCH ---
HPI - Psych General: Chief Complaint: Psychiatric Symptoms Stated Complaint: SI Time Seen by Provider: 10/14/20 17:21 History of Present Illness: HPI Narrative: The patient is a 24-year-old female with past medical history depression on escitalopram who comes to the ER after making homicidal threats towards her child's father. She says he took the child and would not tell her where the child was. She said she would find a gun and put a bullet in his head and told that to him and also the police. She admits that she did states those things in the heat of the moment but did not actually mean it. She was just concerned about her child. She currently in the ER denies any of those symptoms. She has a 96-hour hold with affidavit attached to it written by the collection officer. She denies alcohol and drugs. She has chronic depression and takes Escitalopram Associated symptoms: Deny depression Review of Systems General: Reports: 10 or more systems reviewed and unremarkable except in HPI and below Const: Denies: fatigue Eyes: Denies: change in vision, blurry vision or eye redness ENMT: Denies: throat pain, swelling of lips/tongue, ear or mastoid pain or nasal congestion Card: Denies: chest pain, palpitations, irregular heart rhythm, edema, dyspnea on exertion or orthopnea Resp: Denies: dyspnea, productive cough or non-productive cough GI: Denies: abdominal pain, diarrhea or GI cramping : Denies: flank pain, difficulty voiding, urinary frequency or urinary urgency Musc: Denies: neck pain, back pain, extremity pain, joint pain, joint redness, limited range of motion or muscle weakness Skin/Breast: Denies: rash, pruritus, erythema, skin pain or skin tenderness Neuro: Denies: headache(s), numbness in extremities, weakness in extremities, sensory changes, difficulty walking, dizziness, confusion or Slurred speech present Psych: Denies: anxiety or depression Endo: Denies: polyuria All/Imm: Denies: urticaria, throat swelling or tongue swelling PFSH ED PFSH: Medical History (Updated 10/14/20 @ 20:17 by Damian Akers MD) Hypothyroid Per records, patient had been taking [place] Thyroid. Surgical History History of tonsillectomy age 8 Family History Grandmother Cancer Breast Grandfather Dementia Father Diabetes Social History Smoking and tobacco status: never smoked Alcohol intake: current Alcohol intake frequency: holidays/special occasions only Other details last substance use: Denies drug use Female Reproductive History: Date of last menstrual period: 08/26/20 Physical Exam Const: COMMON NORMALS: no acute distress, average body habitus, patient oriented x3, no limitations, healthy appearing, alert and well nourished GENERAL APPEARANCE: cooperative, comfortable, well kempt and well developed ORIENTATION/CONSCIOUSNESS: Yes awake, Yes oriented to person, Yes oriented to place and Yes oriented to time HENMT: COMMON NORMALS: normocephalic, external ears normal and Normal external nose present HEAD & SCALP: normal to inspection and normocephalic NOSE: Normal external nose present EXTERNAL EAR: Yes external ears normal MOUTH: Normal oral and palatal mucosa present THROAT: posterior oropharynx normal Eye: COMMON NORMALS: Equal, round and reactive pupils present and EOMs intact bilaterally GENERAL EYE: appearance normal, both eyes and all related structures PUPIL: Yes Equal, round and reactive pupils present Neck/C-Spine: COMMON NORMALS: full ROM, no lymphadenopathy, no meningeal signs and no JVD GENERAL: Yes normal visual inspection Lymph: LYMPHATIC: no lymphadenopathy noted Chest: COMMONS NORMALS: normal inspection of the chest and normal palpation of entire chest wall Resp: COMMON NORMALS: normal respiratory effort, No retractions, No use of accessory muscles, clear to auscultation bilaterally and percussion normal EFFORT & INSPECTION: Yes able to speak in complete sentences AUSCULTATION: clear to auscultation bilaterally PERCUSSION: percussion normal Cardio: COMMON NORMALS: no JVD, regular rate, regular rhythm, S1 normal heart sound present, S2 normal heart sound present and Peripheral pulses 2+ throughout RATE: regular rate RHYTHM: regular rhythm HEART SOUNDS: S1 normal heart sound present and S2 normal heart sound present PERIPHERAL PULSES: Peripheral pulses 2+ throughout GI: COMMON NORMALS: Normal to inspection, nondistended, normoactive bowel sounds present, Soft to palpation, non-tender and no masses INSPECTION: Yes normal to inspection PALPATION: Yes Soft to palpation : COMMON NORMALS: Yes no CVA tenderness BLADDER/KIDNEY EXAM: Yes no CVA tenderness Back/Pelvis: COMMON NORMALS: no CVA tenderness, thoracic and lumbar spine normal to inspection, no thoracic nor lumbar tenderness and thoraco-lumbar ROM normal Extremity: COMMON NORMALS: normal to inspection, full ROM, capillary refill normal, no joint enlargement and no pedal edema GENERAL: Yes normal exam except as noted Neuro: COMMON NORMALS: patient oriented x3, CN's II-XII intact bilaterally, moves all extremities, no focal motor deficits, no sensory deficits noted and gait normal SENSORIUM/ORIENTATION: Yes alert, Yes oriented to person, Yes oriented to place and Yes oriented to time MENINGEAL SIGNS: Yes no meningeal signs Psych: COMMON NORMALS: mental status grossly normal, Normal thought process present, cooperative, normal affect and speech normal APPEARANCE: Yes well kempt ATTITUDE: Yes calm SPEECH: Yes normal speech THOUGHT PROCESS: Normal thought process present Skin: COMMON NORMALS: no rashes or lesions noted GENERAL SKIN EXAM: no rashes or lesions noted MDM - Psych MDM Narrative: Medical decision making narrative: In the ED she is behaving normally though she does admit saying that she was going to shoot her ex in the head if he did not tell her where her child was. She does not feel that way now and she feels he is a good father. She says she would never do anything to hurt him she was just concerned about her child's wellbeing and safety. Discussed the case with Dr. Arora who recommended a tele-psych visit. Dr. Valencia saw her in a tele-psych visit and recommended overturning the 96-hour hold and discharging her as she is not currently having any feelings and it was likely in the heat of the moment she said those things. He feels she is safe for discharge. She was discharged in stable condition. I recommended she call 911 if she has any more irrational thoughts or is worried about the location of her child. Lab Data: Labs: Lab Results 10/14/20 10/14/20 10/14/20 Range/Units 17:32 17:32 17:32 WBC (4.0-10.0) 10^3/ uL RBC (4.1-5.3) 10^6/u L Hgb (11.5-15.3) g/dL Hct (37.0-47.0) % MCV (81-99) fL MCH (28.0-34.0) pg MCHC (30.0-36.0) g/dL RDW (12.1-15.1) % Plt Count (130-400) 10^3/c mm MPV (7.4-10.4) fL Neut % (Auto) % Lymph % (Auto) % [place] % (Auto) % Eos % (Auto) % Baso % (Auto) % Neut # (Auto) (1.8-7.7) 10^3/u L Lymph # (Auto) (0.8-4.8) 10^3/u L [place] # (Auto) (0.2-0.9) 10^3/u L Eos # (Auto) (0.0-0.8) 10^3/u L Baso # (Auto) (0.0-0.1) 10^3/u L Nucleated RBC % (a uto) % Nucleated RBCs # /100WBC Sodium (136-145) mmol/L Potassium (3.5-5.1) mmol/L Chloride (98-107) mmol/L Carbon Dioxide (22-29) mmol/L Anion Gap (5-19) BUN (6-20) mg/dL Creatinine (0.5-0.9) mg/dL GFR Calculation (90-130) mL/min Glucose (65-115) mg/dL Calculated Osmolal ity (285-295) mOsm/k g Calcium (8.5-10.5) mg/dL Total Bilirubin (0.15-1.2) mg/dL AST (0-32) U/L ALT (0-33) U/L Alkaline Phosphata se (35-105) IU/L Total Protein (6.6-8.7) g/dL Albumin (3.5-5.2) g/dL Globulin (1.3-4.6) g/dL TSH (0.27-4.20) uIU/ mL HCG, Qual Negative (Negative) Urine Color Yellow (Yellow) Urine Appearance Clear (CLEAR) Urine pH 7 (5-7) Ur Specific Gravit y 1.010 (1.005-1.030) Urine Protein Neg (Negative) Urine Glucose (UA) Norm (Normal) Urine Ketones Negative (Negative) Urine Blood Neg (Negative) Urine Nitrate Negative (Negative) Urine Bilirubin Neg (Negative) Urine Urobilinogen Norm (Negative) mg/dL Ur Leukocyte Tena ase Negative (Negative) Salicylates (3-10) mg/dL Urine Opiates Scre en Negative (Negative) ng/mL Acetaminophen (10-30) ug/mL Ur Barbiturates Sc reen Negative (Negative) ng/mL Ur Phencyclidine S crn Negative (Negative) ng/mL Ur Amphetamines Sc reen Negative (Negative) ng/mL U Benzodiazepines Scrn Negative (Negative) ng/mL Urine Cocaine Scre en Negative (Negative) ng/mL U Marijuana (THC) Screen Negative (Negative) ng/mL Ethyl Alcohol (0-10) mg/dL 10/14/20 10/14/20 Range/Units 17:35 17:35 WBC 8.3 (4.0-10.0) 10^3/ uL RBC 5.09 (4.1-5.3) 10^6/u L Hgb 14.9 (11.5-15.3) g/dL Hct 45.3 (37.0-47.0) % MCV 89.0 (81-99) fL MCH 29.3 (28.0-34.0) pg MCHC 32.9 (30.0-36.0) g/dL RDW 13.1 (12.1-15.1) % Plt Count 243 (130-400) 10^3/c mm MPV 10.5 H (7.4-10.4) fL Neut % (Auto) 66.7 % Lymph % (Auto) 21.6 % [place] % (Auto) 8.5 % Eos % (Auto) 2.3 % Baso % (Auto) 0.5 % Neut # (Auto) 5.52 (1.8-7.7) 10^3/u L Lymph # (Auto) 1.8 (0.8-4.8) 10^3/u L [place] # (Auto) 0.7 (0.2-0.9) 10^3/u L Eos # (Auto) 0.2 (0.0-0.8) 10^3/u L Baso # (Auto) 0.0 (0.0-0.1) 10^3/u L Nucleated RBC % (a uto) 0 % Nucleated RBCs # 0.0 /100WBC Sodium 139 (136-145) mmol/L Potassium 3.7 (3.5-5.1) mmol/L Chloride 104 (98-107) mmol/L Carbon Dioxide 26 (22-29) mmol/L Anion Gap 12.7 (5-19) BUN 8 (6-20) mg/dL Creatinine 0.5 (0.5-0.9) mg/dL GFR Calculation 152.9 H (90-130) mL/min Glucose 81 (65-115) mg/dL Calculated Osmolal ity 285 (285-295) mOsm/k g Calcium 9.5 (8.5-10.5) mg/dL Total Bilirubin 0.3 (0.15-1.2) mg/dL AST 19 (0-32) U/L ALT 20 (0-33) U/L Alkaline Phosphata se 83 (35-105) IU/L Total Protein 7.9 (6.6-8.7) g/dL Albumin 4.6 (3.5-5.2) g/dL Globulin 3.3 (1.3-4.6) g/dL TSH 1.76 (0.27-4.20) uIU/ mL HCG, Qual (Negative) Urine Color (Yellow) Urine Appearance (CLEAR) Urine pH (5-7) Ur Specific Gravit y (1.005-1.030) Urine Protein (Negative) Urine Glucose (UA) (Normal) Urine Ketones (Negative) Urine Blood (Negative) Urine Nitrate (Negative) Urine Bilirubin (Negative) Urine Urobilinogen (Negative) mg/dL Ur Leukocyte Tena ase (Negative) Salicylates < 0.3 L (3-10) mg/dL Urine Opiates Scre en (Negative) ng/mL Acetaminophen < 5.0 L (10-30) ug/mL Ur Barbiturates Sc reen (Negative) ng/mL Ur Phencyclidine S crn (Negative) ng/mL Ur Amphetamines Sc reen (Negative) ng/mL U Benzodiazepines Scrn (Negative) ng/mL Urine Cocaine Scre en (Negative) ng/mL U Marijuana (THC) Screen (Negative) ng/mL Ethyl Alcohol < 10 (0-10) mg/dL Discharge Plan Discharge Patient Disposition: Home Clinical Impression: Depression Condition: Stable Prescriptions: New escitalopram oxalate 20 mg tablet 20 mg PO DAILY Qty: 14 RF: 0 Discontinued escitalopram oxalate [Lexapro] 10 mg tablet 10 mg PO DAILY Qty: 30 RF: 12 No Action norgestimate-ethinyl estradiol [Tri-Sprintec (28)] 0.18/0.215/0.25 mg-35 mcg (28) tablet 1 tab PO DAILY Qty: 84 RF: 3 28-800 mg-mcg Tablet See Rx Instructions .ROUTE .COMPLEX RF: 0 multivitamin Tablet 1 tab PO DAILY RF: 0 Vitamin B-12 1 tab PO DAILY RF: 0 Vitamin D3 1 tab PO DAILY RF: 0 [place] Thyroid See Rx Instructions .ROUTE .COMPLEX RF: 0 Discharge Orders: Discharge ED (Routine); Ordered 10/14/20 Ordered By: Damian Akers Discharge Diet: Advance as tolerated Discharge Activity: Resume usual activity Patient Instructions: Depression (ED), Opioid Safety Activity Restrictions/Additional Instructions: Please call police if you have problems locating your children. If you have any more thoughts of hurting anyone else please dial 911 and return to the ER. Please follow-up with your mental health provider or primary care physician in 2 days to discuss further. Coding Level of Care Code ED Furniture Sales Consultant for Lisa Valenzuela
[2020-10-14 20:33] VITALS: BP 128/86; PULSE 126; RESP 17; TEMP 37.1; O2SAT 98
== END 2020-10-14 20:34 | disposition home or self-care (01) ==
PROVIDERS: Emergency Provider Family Medicine
DX: F32.9 Major depressive disorder, single episode, unspecified (principal)
CPT/HCPCS: 80053; 80306; 80307; 81003; 81025; 84443; 85025; 93005; 99283

== ENCOUNTER 2021-10-09 02:00 | Emergency (ER) | payer MEDICAID, SELFPAY ==
[2021-10-09 02:07] VITALS: BP 140/91; PULSE 86; RESP 16; TEMP 36.6; O2SAT 97; BMI 26.6
--- NOTE | 2021-10-09 02:15 | ECG_ITS ---
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 Measurements Intervals [place] Rate: 74 P: 23 [place]: 140 QRS: 51 QRSD: 91 T: 33 QT: 392 QTc: 437 Interpretive Statements SINUS RHYTHM WITH SINUS ARRHYTHMIA Compared to ECG 10/14/2020 17:39:37 No significant changes Electronically Signed On 10-10-2021 6:00:49 J2EE CONSULTANT by Marylou Estrada M.D. [id number]
--- NOTE | 2021-10-09 02:16 | ED_ITS ---
HPI - Syncope General: Chief Complaint: Syncope Stated Complaint: Passed out Time Seen by Provider: 10/09/21 02:09 Source: patient Mode of arrival: ambulatory Limitations: no limitations History of Present Illness: 25-year-old female who states that she was up tonight painting a olivia jacket and had a syncopal episode roughly 45 minutes ago. States she just felt lightheaded passed out for seconds. She denies any chest pain denies any headache denies any vomiting or diarrhea she does not believe she is she has never passed out before. Associated symptoms: Reports chest pain; Deny abdominal pain, fever(s), headache(s) or nausea Review of Systems Const: Denies: fever(s), chills, body aches or change in appetite Eyes: Denies: blurry vision or eye discomfort ENMT: Denies: throat pain or dental pain Card: Reports: chest pain Resp: Denies: dyspnea GI: Denies: abdominal pain, nausea, vomiting or diarrhea : Denies: dysuria Musc: Denies: neck pain or back pain Skin/Breast: Denies: rash Neuro: Denies: headache(s) Psych: Denies: depression Edgardo/Lymph: Denies: easy bruising All/Imm: Denies: urticaria PFSH ED PFSH: Medical History (Updated 10/09/21 @ 02:53 by Elan Estes MD) Hypothyroid Per records, patient had been taking [place] Thyroid. Surgical History History of tonsillectomy age 8 Family History Grandmother Cancer Breast Grandfather Dementia Father Diabetes Social History Smoking and tobacco status: never smoked Alcohol intake: current Alcohol intake frequency: holidays/special occasions only Other details last substance use: Denies drug use Female Reproductive History: Date of last menstrual period: 08/26/20 Physical Exam Const: COMMON NORMALS: no acute distress, patient oriented x3 and healthy appearing HENMT: COMMON NORMALS: normocephalic and atraumatic HEAD & SCALP: normocephalic and atraumatic Eye: COMMON NORMALS: Equal, round and reactive pupils present and EOMs intact bilaterally PUPIL: Yes Equal, round and reactive pupils present Neck/C-Spine: COMMON NORMALS: full ROM and supple Chest: COMMONS NORMALS: normal inspection of the chest and normal palpation of entire chest wall Resp: COMMON NORMALS: normal respiratory effort, No retractions, No use of accessory muscles and clear to auscultation bilaterally AUSCULTATION: clear to auscultation bilaterally Cardio: COMMON NORMALS: regular rate, regular rhythm and No murmurs present (Cardio) RATE: regular rate RHYTHM: regular rhythm GI: COMMON NORMALS: Normal to inspection, nondistended, normoactive bowel so unds present, Soft to palpation, non-tender and no masses PALPATION: Yes Soft to palpation Extremity: COMMON NORMALS: normal to inspection and full ROM Neuro: COMMON NORMALS: patient oriented x3, moves all extremities and no focal motor deficits Psych: COMMON NORMALS: mental status grossly normal, Normal thought process present and cooperative THOUGHT PROCESS: Normal thought process present Skin: COMMON NORMALS: no rashes or lesions noted and no wounds GENERAL SKIN EXAM: no rashes or lesions noted Course Vital Signs: Vital signs: Vital Signs Temperature 97.8 F 10/09/21 02:07 Pulse Rate 86 10/09/21 02:07 Respiratory Rate 16 10/09/21 02:07 Blood Pressure 140/91 10/09/21 02:07 Pulse Oximetry 97 10/09/21 02:07 MDM - Syncope Medical Decision Making Patient presents with a syncopal event she has been well-appearing here asymptomatic she is not blood count is normal EKG is normal likely a vagal response she is stable for discharge is to follow-up with PCP and return if worsening. Lab Data : 10/09/21 02:42 Laboratory Results WBC 7.5 10^3/uL (4.0-10.0) 10/09/21 02:42 RBC 4.67 10^6/uL (4.1-5.3) 10/09/21 02:42 Hgb 13.7 g/dL (11.5-15.3) 10/09/21 02:42 Hct 41.6 % (37.0-47.0) 10/09/21 02:42 MCV 89.1 fl (81-99) 10/09/21 02:42 MCH 29.3 pg (28.0-34.0) 10/09/21 02:42 MCHC 32.9 g/dL (30.0-36.0) 10/09/21 02:42 RDW 13.5 % (12.1-15.1) 10/09/21 02:42 Plt Count 260 10^3/cmm (130-400) 10/09/21 02:42 MPV 10.1 fL (7.4-10.4) 10/09/21 02:42 Neut % (Auto) 54.7 % 10/09/21 02:42 Lymph % (Auto) 33.5 % 10/09/21 02:42 Elliott % (Auto) 9.2 % 10/09/21 02:42 Eos % (Auto) 1.6 % 10/09/21 02:42 Baso % (Auto) 0.7 % 10/09/21 02:42 Neut # (Auto) 4.08 10^3/uL (1.8-7.7) 10/09/21 02:42 Lymph # (Auto) 2.5 10^3/uL (0.8-4.8) 10/09/21 02:42 Elliott # (Auto) 0.7 10^3/uL (0.2-0.9) 10/09/21 02:42 Eos # (Auto) 0.1 10^3/uL (0.0-0.8) 10/09/21 02:42 Baso # (Auto) 0.1 10^3/uL (0.0-0.1) 10/09/21 02:42 Nucleated RBC % (auto) 0 % 10/09/21 02:42 Nucleated RBCs # 0.0 /100WBC 10/09/21 02:42 HCG, Qual Negative (Negative) 10/09/21 02:42 EKG Data EKG 1: I personally reviewed and interpreted this EKG as follows: EKG interpretation date: 10/09/21 EKG interpretation time: 02:30 Interpretation: nsr hr [address] or t wave abnormalities qrs 91 qtc 420 Discharge Plan Discharge Patient Disposition: Home Clinical Impression: Syncope Condition: Stable Prescriptions: No Action norgestimate-ethinyl estradiol [Tri-Sprintec (28)] 0.18/0.215/0.25 mg-35 mcg (28) tablet 1 tab PO DAILY Qty: 84 3RF 28-800 mg-mcg Tablet See Rx Instructions .ROUTE .COMPLEX 0RF Rx Instructions: take daily multivitamin Tablet 1 tab PO DAILY 0RF Vitamin B-12 1 tab PO DAILY 0RF Vitamin D3 1 tab PO DAILY 0RF [place] Thyroid See Rx Instructions .ROUTE .COMPLEX 0RF Rx Instructions: TAKE DIRECTED escitalopram oxalate 20 mg tablet 20 mg PO DAILY Qty: 14 0RF Discharge Orders: Discharge ED (Routine); Ordered 10/09/21 Ordered By: Elan Estes Discharge Diet: Advance as tolerated Discharge Activity: Resume usual activity Patient Instructions: Syncope (ED) Coding Level of Care Code ED Special Order Jeweler for Lisa Fwodessa Exam Comprehensive
[2021-10-09 02:51] LABS: Basophils # 0.1 10^3/uL (0.0-0.1); Basophils % 0.7 %; Eosinophils # 0.1 10^3/uL (0.0-0.8); Eosinophils % 1.6 %; Hematocrit 41.6 % (37.0-47.0); Hemoglobin 13.7 g/dL (11.5-15.3); Lymphocytes # 2.5 10^3/uL (0.8-4.8); Lymphocytes % 33.5 %; Mean Corpuscular HGB Conc 32.9 g/dL (30.0-36.0); Mean Corpuscular Hemoglobin 29.3 pg (28.0-34.0); Mean Corpuscular Volume 89.1 fl (81-99); Mean Platelet Volume 10.1 fL (7.4-10.4); Monocytes # 0.7 10^3/uL (0.2-0.9); Monocytes % 9.2 %; Neutrophils # 4.08 10^3/uL (1.8-7.7); Neutrophils % 54.7 %; Nucleated Red Blood Cells % 0 %; Platelet Count 260 10^3/cmm (130-400); Red Blood Count 4.67 10^6/uL (4.1-5.3); Red Cell Distribution Width 13.5 % (12.1-15.1); White Blood Count 7.5 10^3/uL (4.0-10.0)
[2021-10-09 03:04] LABS: HCG, Serum Qual Negative (Negative)
[2021-10-09 03:05] VITALS: BP 116/78; PULSE 77; RESP 18; O2SAT 97
== END 2021-10-09 03:05 | disposition home or self-care (01) ==
PROVIDERS: Emergency Provider Emergency Medicine
DX: R55 Syncope and collapse (principal)
CPT/HCPCS: 84703; 85025; 93005; 99282

== ENCOUNTER 2021-11-19 17:08 | Inpatient (IN) | payer MEDICAID, SELFPAY ==
--- NOTE | 2021-11-19 17:18 | W.ED.GENADLT ---
HPI - General Adult General: Chief complaint: Psychiatric Symptoms Stated complaint: 96 HOUR HOLD Time Seen by Provider: 11/19/21 17:13 History of Present Illness: HPI: [25]yo patient BIBA for court order for involuntary commitment. There was concern for SI with plan in the court order. On arrival, the patient is AAOx3 and cooperative with my evaluation. No focal complaints of chest pain, shortness of breath, palpitations, N/V, focal GI/ complaints. Currently denies SI/HI. No complaints of hallucinations. Onset: acute on chronic Duration: ongoing Location: home Severity: severe Associated symptoms: Deny chest pain, dyspnea, nausea, rash, palpitations or vomiting Review of Systems Const: Denies: fever(s) or chills Eyes: Denies: change in vision ENMT: Denies: mouth pain Card: Denies: chest pain or palpitations Resp: Denies: dyspnea or non-productive cough GI: Denies: abdominal pain, nausea, vomiting or diarrhea : Denies: dysuria Musc: Denies: extremity pain Skin/Breast: Denies: rash or new lesions Neuro: Denies: weakness in extremities Psych: Reports: other (Normal mood) Edgardo/Lymph: Denies: easy bruising PFSH ED PFSH: Medical History (Updated 11/19/21 @ 17:20 by Allan Hollis MD) Hypothyroid Per records, patient had been taking [place] Thyroid. Surgical History History of tonsillectomy age 8 Family History Grandmother Cancer Breast Grandfather Dementia Father Diabetes Social History Smoking and tobacco status: never smoked Alcohol intake: current Alcohol intake frequency: holidays/special occasions only Other details last substance use: Denies drug use Female Reproductive History: Date of last menstrual period: 08/26/20 Physical Exam Const: COMMON NORMALS: alert HENMT: COMMON NORMALS: atraumatic HEAD & SCALP: atraumatic MOUTH: moist mucous membranes not abnormal Eye: COMMON NORMALS: EOMs intact bilaterally and conjunctivae normal CONJUNCTIVA: Yes conjunctivae normal Neck/C-Spine: COMMON NORMALS: full ROM and supple Resp: COMMON NORMALS: normal respiratory effort and clear to auscultation bilaterally AUSCULTATION: clear to auscultation bilaterally Cardio: COMMON NORMALS: regular rate RATE: regular rate GI: COMMON NORMALS: Soft to palpation and non-tender PALPATION: Yes Soft to palpation Extremity: COMMON NORMALS: full ROM Neuro: SENSORIUM/ORIENTATION: Yes alert MOTOR EXAM: No Abnormal motor strength present and Other motor observations present (no focal motor deficits) Psych: COMMON NORMALS: speech normal SPEECH: Yes normal speech MOOD & AFFECT: Yes euthymic mood MDM - General Adult Medical Decision Making [25]yo patient presenting for concerns for SI with plan. HDS, exam within normal limit Thoughts are linear and organized, and the patient has no AH/VH, or HI. Patient thinks that she has retained glass in her foot. Patient reports that she is up-to-date with her tetanus. Clinically the patient displays no overt toxidrome; they are well appearing, with low suspicion for toxic ingestion given history and exam. Symptoms unlikely 2/2 anemia, hypothyroidism, infection, or ICH. Workup: CBC, CMP, Lipase, salicylate/tylenol, UDS, Xrays foot b/l Lab findings: wnl, x-rays of the feet did not show any retained foreign radiopaque objects or glass. [7:00pm] On reassessment, labs and workup wnl. Patient is hemodynamically stable with no acute medical complaints. Case discussed with psychiatric provider Dr. Lyn at [facility] psych inpatient with recommendation for admission Disposition: Psych Lab Data : 11/19/21 17:52 11/19/21 17:52 Radiology Impressions Foot X-Ray 11/19/21 18:19 IMPRESSION: No fracture or dislocation, or radiopaque subcutaneous foreign body. Laboratory Results WBC 9.5 10^3/uL (4.0-10.0) 11/19/21 17:52 RBC 4.89 10^6/uL (4.1-5.3) 11/19/21 17:52 Hgb 14.5 g/dL (11.5-15.3) 11/19/21 17:52 Hct 44.1 % (37.0-47.0) 11/19/21 17:52 MCV 90.2 fl (81-99) 11/19/21 17:52 MCH 29.7 pg (28.0-34.0) 11/19/21 17:52 MCHC 32.9 g/dL (30.0-36.0) 11/19/21 17:52 RDW 13.0 % (12.1-15.1) 11/19/21 17:52 Plt Count 270 10^3/cmm (130-400) 11/19/21 17:52 MPV 10.6 fL (7.4-10.4) H 11/19/21 17:52 Neut % (Auto) 56.6 % 11/19/21 17:52 Lymph % (Auto) 33.1 % 11/19/21 17:52 [place] % (Auto) 8.4 % 11/19/21 17:52 Eos % (Auto) 1.2 % 11/19/21 17:52 Baso % (Auto) 0.5 % 11/19/21 17:52 Neut # (Auto) 5.36 10^3/uL (1.8-7.7) 11/19/21 17:52 Lymph # (Auto) 3.1 10^3/uL (0.8-4.8) 11/19/21 17:52 [place] # (Auto) 0.8 10^3/uL (0.2-0.9) 11/19/21 17:52 Eos # (Auto) 0.1 10^3/uL (0.0-0.8) 11/19/21 17:52 Baso # (Auto) 0.1 10^3/uL (0.0-0.1) 11/19/21 17:52 Nucleated RBC % (auto) 0 % 11/19/21 17:52 Nucleated RBCs # 0.0 /100WBC 11/19/21 17:52 Sodium 139 mmol/L (136-145) 11/19/21 17:52 Potassium 3.4 mmol/L (3.5-5.1) L 11/19/21 17:52 Chloride 103 mmol/L (98-107) 11/19/21 17:52 Carbon Dioxide 22 mmol/L (22-29) 11/19/21 17:52 Anion Gap 17.4 (5-19) 11/19/21 17:52 BUN 14 mg/dL (6-20) 11/19/21 17:52 Creatinine 0.6 mg/dL (0.5-0.9) 11/19/21 17:52 GFR Calculation 122.8 mL/min (90-130) 11/19/21 17:52 Glucose 84 mg/dL (65-115) 11/19/21 17:52 Calculated Osmolality 288 mOsm/kg (285-295) 11/19/21 17:52 Calcium 8.8 mg/dL (8.5-10.5) 11/19/21 17:52 Total Bilirubin 0.7 mg/dL (0.15-1.2) 11/19/21 17:52 AST 20 U/L (0-32) 11/19/21 17:52 ALT 11 U/L (0-33) 11/19/21 17:52 Alkaline Phosphatase 75 IU/L (35-105) 11/19/21 17:52 Total Protein 7.8 g/dL (6.6-8.7) 11/19/21 17:52 Albumin 4.6 g/dL (3.5-5.2) 11/19/21 17:52 Globulin 3.2 g/dL (1.3-4.6) 11/19/21 17:52 Lipase 19 U/L (13-60) 11/19/21 17:52 Salicylates 0.4 mg/dL (3-10) L 11/19/21 17:52 Urine Opiates Screen Negative ng/mL (Negative) 11/19/21 17:45 Acetaminophen < 5.0 ug/mL (10-30) L 11/19/21 17:52 Ur Barbiturates Screen Negative ng/mL (Negative) 11/19/21 17:45 Ur Phencyclidine Scrn Negative ng/mL (Negative) 11/19/21 17:45 Ur Amphetamines Screen Negative ng/mL (Negative) 11/19/21 17:45 U Benzodiazepines Scrn Negative ng/mL (Negative) 11/19/21 17:45 Urine Cocaine Screen Negative ng/mL (Negative) 11/19/21 17:45 U Marijuana (THC) Screen Negative ng/mL (Negative) 11/19/21 17:45 Discharge Plan Discharge Patient Disposition: Admitted As Inpatient Admit Provider: Jose Roberto Lyn Clinical Impression: Depression with suicidal ideation Condition: Stable Coding Level of Care Code ED Maintenance Journeyman for Chg Fwd Exam Comprehensive
[2021-11-19 18:08] LABS: Basophils # 0.1 10^3/uL (0.0-0.1); Basophils % 0.5 %; Eosinophils # 0.1 10^3/uL (0.0-0.8); Eosinophils % 1.2 %; Hematocrit 44.1 % (37.0-47.0); Hemoglobin 14.5 g/dL (11.5-15.3); Lymphocytes # 3.1 10^3/uL (0.8-4.8); Lymphocytes % 33.1 %; Mean Corpuscular HGB Conc 32.9 g/dL (30.0-36.0); Mean Corpuscular Hemoglobin 29.7 pg (28.0-34.0); Mean Corpuscular Volume 90.2 fl (81-99); Mean Platelet Volume 10.6 fL (7.4-10.4); Monocytes # 0.8 10^3/uL (0.2-0.9); Monocytes % 8.4 %; Neutrophils # 5.36 10^3/uL (1.8-7.7); Neutrophils % 56.6 %; Nucleated Red Blood Cells % 0 %; Platelet Count 270 10^3/cmm (130-400); Red Blood Count 4.89 10^6/uL (4.1-5.3); White Blood Count 9.5 10^3/uL (4.0-10.0)
--- NOTE | 2021-11-19 18:11 | XRR_ITS ---
PROCEDURE INFORMATION: Exam: XR Right Foot Exam date and time: 11/19/2021 6:18 PM Age: 25 years old Clinical indication: Pain; Other: Possible glass in foot; Additional info: Retained glass? TECHNIQUE: Imaging protocol: XR Right foot. Views: 1 or 2 views. COMPARISON: No relevant prior studies available. FINDINGS: Bones/joints: No fracture or dislocation. A small ossicle is seen inferior to the tip of the lateral malleolus. Soft tissues: No radiopaque subcutaneous foreign body is visualized. XR/XR foot RT 2V [id number] IMPRESSION: No fracture or dislocation, or subcutaneous foreign body.
--- NOTE | 2021-11-19 18:19 | XRR_ITS ---
PROCEDURE INFORMATION: Exam: XR Left Foot Exam date and time: 11/19/2021 6:22 PM Age: 25 years old Clinical indication: Pain; Foot; Left; Additional info: Possible retained glass in foot TECHNIQUE: Imaging protocol: XR Left foot. Views: 1 or 2 views. COMPARISON: No relevant prior studies available. FINDINGS: Bones/joints: No fracture or dislocation. Soft tissues: No radiopaque subcutaneous foreign body is visualized. XR/XR foot LT 2V [id number] IMPRESSION: No fracture or dislocation, or radiopaque subcutaneous foreign body.
[2021-11-19 18:21] LABS: Alanine Aminotransferase 11 U/L (0-33); Albumin Level 4.6 g/dL (3.5-5.2); Alkaline Phosphatase 75 IU/L (35-105); Anion Gap 17.4 (5-19); Aspartate Amino Transferase 20 U/L (0-32); Blood Urea Nitrogen 14 mg/dL (6-20); Calcium 8.8 mg/dL (8.5-10.5); Carbon Dioxide 22 mmol/L (22-29); Chloride 103 mmol/L (98-107); Globulin 3.2 g/dL (1.3-4.6); Glomerular Filtration Rate 122.8 mL/min (90-130); Glucose 84 mg/dL (65-115); Lipase 19 U/L (13-60); Osmolality Calculated 288 mOsm/kg (285-295); Potassium 3.4 mmol/L (3.5-5.1); Salicylate 0.4 mg/dL (3-10); Sodium 139 mmol/L (136-145); Total Bilirubin 0.7 mg/dL (0.15-1.2); Total Protein 7.8 g/dL (6.6-8.7)
[2021-11-19 18:23] LABS: Amphetamines Screen Urine Negative (Negative); Barbiturates Screen Urine Negative (Negative); Benzodiazepines Screen Urine Negative (Negative); Cocaine Screen Urine Negative (Negative); Opiate Screen Urine Negative (Negative); PCP Screen Urine Negative (Negative); THC Screen Urine Negative (Negative)
[2021-11-19 18:27] LABS: Acetaminophen < 5.0 ug/mL (10-30)
[2021-11-19 21:58] VITALS: BP 113/80; PULSE 88; RESP 18; TEMP 36.6; O2SAT 99
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
--- NOTE | 2021-11-20 00:10 | PC.NURSE ---
2336 Patient finally gave up and went to her room to lay down.
[2021-11-20 06:00] VITALS: BP 115/61; PULSE 73; RESP 17; TEMP 36.7; O2SAT 95
[2021-11-20] MEDS: acetaminophen 325 mg Tablet 650 MG PO (06:58)
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
[2021-11-20 14:00] VITALS: BP 128/76; PULSE 91; RESP 17; TEMP 37.1; O2SAT 96
--- NOTE | 2021-11-20 20:45 | PC.NURSE ---
patient pressing call light and cancelling it repeatedly, saying I'm going to keep pressing all these pretty fucking buttons until the doctor comes and sees me. patient not able to be verbally redirected. Dr. Valencia is in doctor's office, he is aware.
[2021-11-20 21:15] VITALS: BP 110/76; PULSE 72; RESP 16; TEMP 36.7; O2SAT 100
--- NOTE | 2021-11-20 21:40 | PC.NURSE ---
Patient repeatedly pushing code blue call light in room. When WATCH SUPERVISOR arrived to the room patient was laying on her bed and stated I need a sandwich . On the next occurrence patient stated I am going to push all these pretty fucking buttons until the doctor comes to see me . Physician was notified.
[2021-11-20] MEDS: ARIPiprazole 10 mg Tablet 5 MG PO (21:43)
--- NOTE | 2021-11-20 22:56 | PC.NURSE ---
She is resting in bed with eyes closed at this time. Earlier she kept demanding to talk with the doctor, and to be discharge. She was turning on her call light wanting the doctor to come in there. She was loud and escalating. The phsycian did speak with her. She was calmer after. She was upsetting others on the unit.
[2021-11-21 06:00] VITALS: RESP 16
[2021-11-21] MEDS: ARIPiprazole 10 mg Tablet PO (10:03)
--- NOTE | 2021-11-21 11:17 | W.PM.NPUPNS ---
Subjective NPU Subjective: Patient resents today reporting that she is feeling a little better but still focused on going home. We had a moment where they were called from outside sources suggesting that she was sending text to him making threats. Initially concerns were raised that she had somehow smuggled a phone onto the unit. However extensive search is an exploration of the situation did not turn up a phone nor did the timing of the allegations jive with her situation. She did not react as explosively as she would have likely prior to the initiation of the Abilify. She continued to have loose associations etc. Mental Status Exam MSE Comments: This is a well-nourished, well-developed, white female, in hospital scrubs, with adequate grooming, and eye contact. No abnormal movements except for psychomotor agitation. Cooperative with exam in mild to moderate distress at times Speech was increased rate and volume and pressured. Mood described as annoyed, affect neuro irritable Thought process, organized. Thought content: patient denied any suicidal or homicidal ideation, there were no delusions reported or noted, patient denied any auditory or visual hallucinations. Attention, concentration, and memory appear intact but were not formally tested. She is alert and oriented times three. Insight and judgment appear impaired, impulse control is impaired. Vitals/I&O/Wt Last Vital Signs Temp 98.0 F 11/20/21 21:15 Pulse 72 11/20/21 21:15 Resp 16 11/21/21 06:00 BP 110/76 11/20/21 21:15 Pulse Ox 100 11/20/21 21:15 Weight last 48 hrs Weight 73.028 kg Data NPU : 11/19/21 17:52 11/19/21 17:52 A&P Assessment and plan (1) Bipolar disorder, current episode manic severe with psychotic features: Status: Acute Plan This is a 25-year-old, white female, who presents with erratic behavior and possible manic presentation on a 96-hour hold, not desiring medication at this time. RECOMMENDATION AND PLAN: 1. Continue current medications. We started Abilify 10 mg p.o. every morning. 2. Encourage individual, group, and milieu therapy. 3. Continue q-15 minute checks for safety. 4. Encourage sober living treatment after discharge, at the highest level of care, to which she is willing to commit. Involuntary Hold Information 96 Hour Hold: 96 Hour Involuntary Admission: Yes 96 Hour Hold Ending Date: 11/25/21 96 Hour Hold Ending Time: 19:43 Attestations NPU Medical Necessity Statement*: Inpatient hospitalization is medically necessary and the clinically appropriate intervention, at this time. We will monitor medications and make changes as indicated. Likely length of stay is three to five days. Coding Level of Care Code Acute Electrical Logging Operator for [facility] Diagnoses Bipolar disorder, current episode manic severe with psychotic features F31.2
[2021-11-21 14:00] VITALS: BP 136/70; PULSE 70; RESP 17; O2SAT 99
[2021-11-21] MEDS: acetaminophen 325 mg Tablet 650 MG PO (15:19)
[2021-11-21 20:47] VITALS: BP 121/81; PULSE 93; RESP 16; O2SAT 98
[2021-11-22 05:42] VITALS: BP 110/69; PULSE 68; RESP 15; O2SAT 98
[2021-11-22] MEDS: ARIPiprazole 10 mg Tablet PO (09:54)
[2021-11-22] MEDS: acetaminophen 325 mg Tablet 650 MG PO (11:07)
[2021-11-22 14:00] VITALS: BP 132/79; PULSE 81; RESP 16; TEMP 36.6; O2SAT 99
--- NOTE | 2021-11-22 15:07 | P.NPUPN_ITS ---
Subjective NPU Subjective: Patient presents today with continued pain of wanting to discharge, being annoyed with certain people, wanting to see her daughter. We had continued discussions about the diagnosis of bipolar disorder and the benefit that we expect from the Abilify. We discussed the risk benefits and alternatives of increasing the dose to 50 mg daily and she understood and agreed to proceed as is documented in this note. Mental Status Exam MSE Comments: This is a well-nourished, well-developed, white female, in hospital scrubs, with adequate grooming, and eye contact. No abnormal movements except for psychomotor agitation. Cooperative with exam in mild distress. Speech was increased rate and volume pressured. Mood described as annoyed, affect not as irritable Thought process, organized. Thought content: patient denied any suicidal or homicidal ideation, there were no delusions reported or noted, patie nt denied any auditory or visual hallucinations. Attention, concentration, and memory appear intact but were not formally tested. She is alert and oriented times three. Insight and judgment appear impaired, impulse control is impaired. Vitals/I&O/Wt Last Vital Signs Temp 98.0 F 11/20/21 21:15 Pulse 68 11/22/21 05:42 Resp 15 11/22/21 05:42 BP 110/69 11/22/21 05:42 Pulse Ox 98 11/22/21 05:42 Data NPU : 11/19/21 17:52 11/19/21 17:52 A&P Assessment and plan (1) Bipolar disorder, current episode manic severe with psychotic features: Status: Acute (2) Depression with suicidal ideation: Status: Acute Plan This is a 25-year-old, white female, who presents with erratic behavior and possible manic presentation on a 96-hour hold, not desiring medication at this time. RECOMMENDATION AND PLAN: 1. Continue current medications.? Increased Abilify to 15 mg p.o. every morning. 2. Encourage individual, group, and milieu therapy. 3. Continue q-15 minute checks for safety. 4. Encourage sober living treatment after discharge, at the highest level of care, to which she is willing to commit. Involuntary Hold Information 96 Hour Hold: 96 Hour Involuntary Admission: Yes 96 Hour Hold Ending Date: 11/25/21 96 Hour Hold Ending Time: 19:43 Attestations NPU Medical Necessity Statement*: Inpatient hospitalization is medically necessary and the clinically appropriate intervention, at this time. We will monitor medications and make changes as indicated.? Likely length of stay is 3-5 days. Coding Level of Care Code Acute Medical Chemist for g Fwd Diagnoses Bipolar disorder, current episode manic severe with psychotic features F31.2 Depression with suicidal ideation F32.A; R45.851
[2021-11-22] MEDS: ibuprofen 800 mg tablet PO (17:21)
[2021-11-22 21:00] VITALS: BP 104/65; PULSE 77; RESP 18; TEMP 36.6; O2SAT 98
[2021-11-23 05:32] VITALS: BMI 25.9
[2021-11-23 06:00] VITALS: BP 92/60; PULSE 88; RESP 16; TEMP 36.6; O2SAT 99
--- NOTE | 2021-11-23 08:14 | P.NPUPN_ITS ---
Subjective NPU Subjective: Patient is in today reporting that she is feeling better overall. She continues to display less [id number] behavior per staff. Is less intrusive in general and has been consistent with taking her medication. She continues to display limited insight into her situation however she endorses knowing what her problem is. She was somewhat irritated at this underwriter mortgage loan bringing up the fact of the diagnosis of bipolar disorder and noting the improvement being seen with the initiation of medication. She is denying any problems with the 15 mg of Abilify. And reports that she is not sleeping at night which is denied by staff. Mental Status Exam MSE Comments: This is a well-nourished, well-developed, white female, in hospital scrubs, with adequate grooming, and eye contact. No abnormal movements except for mild psychomotor agitation. Cooperative with exam in mild distress. Speech was increased rate and volume and less pressured. Mood described as annoyed, affect not as irritable Thought process, organized. Thought content: patient denied any suicidal or homicidal ideation, there were no delusions reported or noted, patient denied any auditory or visual hallucinations. Attention, concentration, and memory appear intact but were not formally tested. She is alert and oriented times three. Insight and judgment appear impaired, impulse control is impaired. Vitals/I&O/Wt Last Vital Signs Temp 98 F 11/23/21 06:00 Pulse 88 11/23/21 06:00 Resp 16 11/23/21 06:00 BP 92/60 11/23/21 06:00 Pulse Ox 99 11/23/21 06:00 Weight last 48 hrs Weight 73.028 kg Data NPU : 11/19/21 17:52 11/19/21 17:52 A&P Assessment and plan (1) Bipolar disorder, current episode manic severe with psychotic features: Status: Acute (2) Depression with suicidal ideation: Status: Acute Plan This is a 25-year-old, white female, who presents with erratic behavior and possible manic presentation on a 96-hour hold, not desiring medication at this time. RECOMMENDATION AND PLAN: 1. Continue current medications.? Increased Abilify to 15 mg p.o. every morning. 2. Encourage individual, group, and milieu therapy. 3. Continue q-15 minute checks for safety. 4. Encourage sober living treatment after discharge, at the highest level of care, to which she is willing to commit. Involuntary Hold Information 96 Hour Hold: 96 Hour Involuntary Admission: Yes 96 Hour Hold Ending Date: 11/25/21 96 Hour Hold Ending Time: 19:43 Attestations NPU Medical Necessity Statement*: Inpatient hospitalization is medically necessary and the clinically appropriate intervention, at this time. We will monitor medications and make changes as indicated.? Likely length of stay is 3-5 days. Coding Level of Care Code Acute Manager Intranet for [facility] Fwd Diagnoses Bipolar disorder, current episode manic severe with psychotic features F31.2 Depression with suicidal ideation F32.A; R45.851
[2021-11-23] MEDS: ARIPiprazole 30 mg Tablet 15 MG PO (09:11)
[2021-11-23] MEDS: ibuprofen 800 mg tablet PO (10:49)
[2021-11-23 13:36] VITALS: BP 95/61; PULSE 79; RESP 17; TEMP 36.6; O2SAT 98
[2021-11-23] MEDS: ondansetron 4 MG Tablet PO (14:17)
[2021-11-23 20:03] VITALS: BP 104/78; PULSE 98; RESP 15; TEMP 36.5; O2SAT 97
[2021-11-24 06:00] VITALS: BP 98/65; PULSE 80; RESP 16; TEMP 36.6; O2SAT 96
[2021-11-24] MEDS: ARIPiprazole 30 mg Tablet 15 MG PO (10:13)
[2021-11-24 14:00] VITALS: BP 99/66; PULSE 70; RESP 17; TEMP 36.7; O2SAT 99
--- NOTE | 2021-11-24 17:36 | PC.NURSE ---
At approximately 1710 patient started yelling. Active listening utilized. Introduced self to patient. Patient started yelling profanity at this nurse. Patient them became calm and started explaining that she just lost someone close to her but could not recall her name. Patient stated she just wants to be home with her grandma and that my heart is hurting. Patient request to speak with physician and asked to retrieve a number off her phone. Received report by SENIOR COMMUNICATIONS SPECIALIST that patient was telling someone on the phone I'm telling them anything and everything to get out of here. I've got to pay my bills, my car payment, my phone bill and rent.
--- NOTE | 2021-11-24 18:51 | P.NPUPN_ITS ---
Subjective NPU Subjective: Patient presents today reporting that she did have quite a meltdown earlier in the day. That also identified the same meltdown that supposedly was related to the of a family friend related to her grandmother. She is taking medication as prescribed and even discussed an openness to the possible initiation of the injection. We discussed the question remains whether there needs to be an additional hold for continued improvement or whether there is a family structure that would allow for her discharge now. Medications: Medication Review Details: This is a well-nourished, well-developed, white female, in hospital scrubs, with adequate grooming, and eye contact. No abnormal movements except for mild psych omotor agitation. Cooperative with exam in mild distress. Speech was increased rate and volume and less pressured. Mood described as annoyed, affect not as irritable Thought process, organized. Thought content: patient denied any suicidal or homicidal ideation, there were no delusions reported or noted, patient denied any auditory or visual hallucinations. Attention, concentration, and memory appear intact but were not formally tested. She is alert and oriented times three. Insight and judgment appear impaired, impulse control is impaired. Vitals/I&O/Wt Last Vital Signs Temp 98.0 F 11/24/21 14:00 Pulse 70 11/24/21 14:00 Resp 17 11/24/21 14:00 BP 99/66 11/24/21 14:00 Pulse Ox 99 11/24/21 14:00 Weight last 48 hrs Weight 73.028 kg Data NPU : 11/19/21 17:52 11/19/21 17:52 A&P Assessment and plan (1) Bipolar disorder, current episode manic severe with psychotic features: Status: Acute (2) Depression with suicidal ideation: Status: Acute Plan This is a 25-year-old, white female, who presents with erratic behavior and possible manic presentation on a 96-hour hold, not desiring medication at this time. RECOMMENDATION AND PLAN: 1. Continue current medications.? Increased Abilify to 15 mg p.o. every morning. Consider the Abilify injection. 2. Encourage individual, group, and milieu therapy. 3. Continue q-15 minute checks for safety. 4. Encourage sober living treatment after discharge, at the highest level of care, to which she is willing to commit. 5. Question remains whether 21-day hold is necessary versus a family structure that would support her situation. Team leaning towards 21-day hold because she continues to have significant impulsivity and volatility. Involuntary Hold Information 96 Hour Hold: 96 Hour Involuntary Admission: Yes 96 Hour Hold Ending Date: 11/25/21 96 Hour Hold Ending Time: 19:43 Attestations NPU Medical Necessity Statement*: Inpatient hospitalization is medically necessary and the clinically appropriate intervention, at this time. We will monitor m edications and make changes as indicated.? Likely length of stay is 2-4 days. Could be longer if we submit for 21-day hold. Coding Level of Care Code Acute Tool Room Attendant for [facility] Fwd Diagnoses Bipolar disorder, current episode manic severe with psychotic features F31.2 Depression with suicidal ideation F32.A; R45.851
[2021-11-24 19:48] VITALS: BP 116/81; PULSE 102; RESP 16; TEMP 36.7; O2SAT 99
--- NOTE | 2021-11-24 21:47 | PC.NURSE ---
Burning with urination Pt came to nurses station asking to speak to COMPLIANCE VICE PRESIDENT. Pt complains of vaginal pain and pain with urination. Pt states she has chronic UTI's and yeast infections. Physician notified and UA ordered.
[2021-11-24 22:01] LABS: Add Urine Microscopic? YES; Bilirubin Urine Neg (Negative); Blood Urine Neg (Negative); Glucose Urine UA Norm (Normal); Ketones Urine Negative (Negative); Leukocyte Esterase Urine 2+ (Negative); Nitrate Urine Negative (Negative); Protein Urine Neg (Negative); Specific Gravity, Urine 1.025 (1.005-1.030); Urine Appearance SL Hazy (CLEAR); Urine Color Yellow (Yellow); Urobilinogen Urine Norm (Negative); pH Urine 5 (5-7)
[2021-11-24 22:17] LABS: RBC Urine 0-4 /hpf (0-2)
[2021-11-24 22:18] LABS: Add Urine Culture? No; Bacteria Urine TRACE /hpf; Mucus Urine 1+ /hpf; Squamous Epithelial Cell Urine 15-25 /hpf (0-5)
[2021-11-25 06:00] VITALS: BP 127/78; PULSE 88; RESP 18; TEMP 36.6; O2SAT 97
[2021-11-25] MEDS: ARIPiprazole 30 mg Tablet 15 MG PO (08:53)
[2021-11-25] MEDS: nicotine 2 mg Gum BUCCAL (10:04)
[2021-11-25] MEDS: ibuprofen 800 mg tablet PO (10:20)
[2021-11-25] MEDS: ondansetron 4 MG Tablet PO (10:23)
[2021-11-25] MEDS: zinc oxide oint 30 gm 1 APPLIC TOPICAL (11:01)
[2021-11-25 14:00] VITALS: BP 112/69; PULSE 87; RESP 16; TEMP 36.8; O2SAT 99
--- NOTE | 2021-11-25 16:06 | P.NPUPN_ITS ---
Subjective NPU Subjective: Patient presents today very upset at the prospect of a 96-hour hold given the fact that she wants to leave. After the paperwork was served she would not converse with this customs entry writer, has a as needed medication and laid in bed a lot. Mental Status Exam MSE Comments: This is a well-nourished, well-developed, white female, in hospital scrubs, with adequate grooming, and eye contact. No abnormal movements except for mild psychomotor agitation. Cooperative with exam in mild to moderate distress. Speech was increased rate and volume but less pressured. Mood not described, affect irritable Thought process, organized. Thought content: patient did not have inwardly or outwardly directed aggression for the most part, there were no delusions reported or noted, she did not appear to attend to internal stimuli Attention, concentration, and memory appear intact but were not formally tested. She is alert and oriented times three. Insight and judgment appear impaired, impulse control is limited. Vitals/I&O/Wt Last Vital Signs Temp 98.3 F 11/25/21 14:00 Pulse 87 11/25/21 14:00 Resp 16 11/25/21 14:00 BP 112/69 11/25/21 14:00 Pulse Ox 99 11/25/21 14:00 Data NPU : 11/19/21 17:52 11/19/21 17:52 A&P Assessment and plan (1) Bipolar disorder, current episode manic severe with psychotic features: Status: Acute (2) Depression with suicidal ideation: Status: Acute Plan This is a 25-year-old, white female, who presents with erratic behavior and possible manic presentation on a 96-hour hold, not desiring medication at this time. RECOMMENDATION AND PLAN: 1. Continue current medications.? Increased Abilify to 15 mg p.o. every morning.? Consider the Abilify injection. 2. Encourage individual, group, and milieu therapy. 3. Continue q-15 minute checks for safety. 4. Encourage sober living treatment after discharge, at the highest level of care, to which she is willing to commit. 5. ? 21-day hold filed. Hearing tomorrow at 930. Still unclear whether at this point this is productive or need to see if she will sign in and stay for couple more days. Clear improvement but concerns for safety remained Involuntary Hold Information 96 Hour Hold: 96 Hour Involuntary Admission: Yes 96 Hour Hold Ending Date: 11/25/21 96 Hour Hold Ending Time: 19:43 Attestations NPU Medical Necessity Statement*: Inpatient hospitalization is medically necessary and the clinically appropriate intervention, at this time. We will monitor medications and make changes as indicated.? Likely length of stay is 1-3 days.? Could be longer if we submit for 21-day hold. Coding Level of Care Code Acute Land Resource Specialist for [facility] Fwd Diagnoses Bipolar disorder, current episode manic severe with psychotic features F31.2 Depression with suicidal ideation F32.A; R45.851
[2021-11-25 20:32] VITALS: BP 97/65; PULSE 72; RESP 20; TEMP 36.5; O2SAT 98
[2021-11-26 06:00] VITALS: BP 105/74; PULSE 106; RESP 20; TEMP 36.6; O2SAT 99
[2021-11-26] MEDS: ARIPiprazole 30 mg Tablet 15 MG PO (06:41)
[2021-11-26] MEDS: magnesium hydroxide 30 mL UDC PO (09:02)
[2021-11-26] MEDS: hyDROXYzine 25 mg Capsule 50 MG PO ×3 (09:14→18:45)
--- NOTE | 2021-11-26 09:24 | PC.NURSE ---
PT IS CALM AND COOPERATIVE THIS MORNING. SOME ANXIETY SURROUNDING COURT. PT DENIES ANY SI/HI OR AVH. DOES CONTINUE TO HAVE SOME DELUSIONS AND PARANOIA SURROUNDING CERTAIN STAFF KNOWING HER (WHICH STAFF DENIES). STATED FEELINGS OF WANTING TO HIT THAT STAFF BUT THAT SHE UNDERSTOOD THAT SHE SHOULD NOT DO THIS AND WOULD NOT DO THIS. PT C/O CONSTIPATION AND BEING UNSURE OF LAST BM. STATES THAT IS IS COMMON FOR HER TO BE UNABLE TO HAVE A BM OUTSIDE OF HER HOME. REQUESTED A LAXATIVE. NEW ORDER PLACED FOR MILK OF MAG. PT TOOK MEDICATION. PT SPOKE WITH PRIOR TO ATTENDING COURT. PT DECIDED THAT SHE WOULD RATHER SIGN IN VOLUNTARILY THAT TO GO TO COURT. PT DID SIGN IN FOR FURTHER TREATMENT. C/O ANXIETY AND TOOK PRN VISTARIL.
[2021-11-26] MEDS: ondansetron 4 MG Tablet PO (10:28)
--- NOTE | 2021-11-26 10:30 | PC.NURSE ---
PRN medication REQUEST ZOFRAN FOR NAUSEA. ZOFRAN 4 MG GIVEN ORDERED FOR C/O NAUSEA AND STOMACH DISCOMFORT.
--- NOTE | 2021-11-26 13:51 | P.NPUPN_ITS ---
Subjective NPU Subjective: Patient presents today and is willing to sign her self into the hospital so that we can have a few more days managing her circumstances well as agreeing to start the injection of Abilify once we verify that something that can be obtained through her insurance. It [birth year] today so she continues to be somewhat frustrated about hospitalization but is significantly improved from her presentation. She denies any current side effects of the medication discontinued the report constipation and inability to go which she attributes to anxiety about having people around. Mental Status Exam MSE Comments: This is a well-nourished, well-developed, white female, in hospital scrubs, with adequate grooming, and eye contact. No abnormal movements except for mild psychomotor agitation. Cooperative with exam in mild distress. Speech was more normal volume with decreasing rate and less pressured. Mood described as okay affect less irritable thought process, organized. Thought content: patient denies suicidal or homicidal ideation, there were no delusions reported or noted, she denied auditory or visual hallucinations. Attention, concentration, and memory appear intact but were not formally tested. She is alert and oriented times three. Insight and judgment appear limited but improving, impulse control is limited, but improving Vitals/I&O/Wt Last Vital Signs Temp 97.8 F 11/26/21 06:00 Pulse 106 H 11/26/21 06:00 Resp 20 H 11/26/21 06:00 BP 105/74 11/26/21 06:00 Pulse Ox 99 11/26/21 06:00 Data NPU : 11/19/21 17:52 11/19/21 17:52 A&P Assessment and plan (1) Bipolar disorder, current episode manic severe with psychotic features: Status: Acute (2) Depression with suicidal ideation: Status: Acute (3) Hypothyroid: Status: Acute Plan This is a 25-year-old, white female, who presents with erratic behavior and possible manic presentation on a 96-hour hold, not desiring medication at this time. RECOMMENDATION AND PLAN: 1. Continue current medications.? Increased Abilify to 15 mg p.o. every morning.? Start Abilify Maintena tomorrow. 2. Encourage individual, group, and milieu therapy. 3. Continue q-15 minute checks for safety. 4. Encourage sober living treatment after discharge, at the highest level of care, to which she is willing to commit. 5. ? Patient agreed to stay till Wednesday. We will work on a plan for safety during that time. She is allowed us to engage with her mother now. Involuntary Hold Information 96 Hour Hold: 96 Hour Involuntary Admission: Yes 96 Hour Hold Ending Date: 11/25/21 96 Hour Hold Ending Time: 19:43 Attestations NPU Medical Necessity Statement*: Inpatient hospitalization is medically necessary and the clinically appropriate intervention, at this time. We will monitor medications and make changes as indicated.? Tentative plan for discharge Wednesday. 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
[2021-11-26 14:00] VITALS: BP 121/69; PULSE 77; RESP 18; TEMP 36.7; O2SAT 99
[2021-11-26] MEDS: bisacodyl 10 mg Supp PR (18:08)
[2021-11-26] MEDS: phenyleph-mineral oil-petrolat Oint 28 gm 1 APPLIC TOPICAL (18:11)
--- NOTE | 2021-11-26 18:38 | PC.NURSE ---
PT HAS CONTINUED TO C/O CONSTIPATION THROUGHOUT DAY. NO EFFECTIVENESS FROM MILK OF MAG, JUICE, PRUNE JUICE, WALKING. ALSO C/O HEMORRHOID PAIN. GAVE NEW ORDERS FOR SUPPOSITORY LAXATIVE AND PREPARATION H. BOTH GIVEN AT 181. AT 1840 PT REPORTS EFFECTIVENESS, HAD LARGE BM.
[2021-11-26] MEDS: trazodone 50 mg Tablet PO (21:08)
[2021-11-26 21:15] VITALS: BP 117/75; PULSE 95; RESP 16; TEMP 36.4; O2SAT 99
[2021-11-27 06:00] VITALS: BP 108/75; PULSE 102; RESP 18; TEMP 36.5; O2SAT 99
[2021-11-27] MEDS: acetaminophen 325 mg Tablet 650 MG PO (06:31)
[2021-11-27] MEDS: hyDROXYzine 25 mg Capsule 50 MG PO ×2 (08:56→18:08)
[2021-11-27] MEDS: ARIPiprazole 30 mg Tablet 15 MG PO (08:57)
[2021-11-27] MEDS: OLANZapine 5 mg ODT PO ×2 (11:57→20:05)
[2021-11-27] MEDS: ARIPiprazole Maintena 400 MG IM (13:08)
--- NOTE | 2021-11-27 13:48 | PC.NURSE ---
PT RECEIVED ABILIFY MAINTENA 400 MG TO LEFT DELTOID. PT ANXIOUS ABOUT RECEIVING BUT COOPERATIVE. 2 STAFF TO ROOM TO ADMINISTER. ADMINISTERED USING ASEPTIC TECHNIQUE, NO ISSUES.
[2021-11-27 14:00] VITALS: BP 140/62; PULSE 92; RESP 16; TEMP 36.7; O2SAT 98
--- NOTE | 2021-11-27 17:57 | P.NPUPN_ITS ---
Subjective NPU Subjective: Patient presents today open to the Abilify ejection. She received the Abilify Maintena 400 mg IM and understood the need for continued oral Abilify for the next 2 weeks. She also agreed to an increase in her Abilify to 20 mg p.o. daily after discussion of the risks, benefits and alternatives she understood and agreed to both these interventions. She continued to be verbose but nothing like at the time of admission per staff. He is eating and sleeping fine and very optimistic about the prospect of discharge this weekend. Mental Status Exam MSE Comments: This is a well-nourished, well-developed, white female, in hospital scrubs, with adequate grooming, and eye contact. No abnormal movements except for mild psychomotor agitation. Cooperative with exam in mild distress. Speech was more normal volume with decreasing rate and less pressured. Mood described as hungry, affect less irritable. Thought process, organized with less tangentiality. Thought content: patient denies suicidal or homicidal ideation, there were no delusions reported or noted, she denied auditory or visual hallucinations.? Attention, concentration, and memory appear intact but were not formally tested. She is alert and oriented times three. Insight and judgment appear limited but improving, impulse control is limited, but improving Vitals/I&O/Wt Last Vital Signs Temp 98.2 F 11/27/21 21:25 Pulse 92 11/27/21 21:25 Resp 16 11/27/21 21:25 BP 99/74 11/27/21 21:25 Pulse Ox 98 11/27/21 14:00 Data NPU : 11/19/21 17:52 11/19/21 17:52 A&P Assessment and plan (1) Bipolar disorder, current episode manic severe with psychotic features: Status: Acute (2) Depression with suicidal ideation: Status: Acute (3) Hypothyroid: Status: Acute Plan This is a 25-year-old, white female, who presents with erratic behavior and possible manic presentation on a 96-hour hold, not desiring medication at this time. RECOMMENDATION AND PLAN: 1. Continue current medications.? Increased Abilify to 15 mg p.o. every morning.? Start Abilify Maintena tomorrow. 2. Encourage individual, group, and milieu therapy. 3. Continue q-15 minute checks for safety. 4. Encourage sober living treatment after discharge, at the highest level of care, to which she is willing to commit. 5. ? Patient agreed to stay till Wednesday.? We will work on a plan for safety during that time.? She is allowed us to engage with her mother now. Involuntary Hold Information 96 Hour Hold: 96 Hour Involuntary Admission: Yes 96 Hour Hold Ending Date: 11/25/21 96 Hour Hold Ending Time: 19:43 Attestations NPU Medical Necessity Statement*: Inpatient hospitalization is medically necessary and the clinically appropriate intervention, at this time. We will monitor medications and make changes as indicated.? Tentative plan for discharge Wednesday. Coding Level of Care Code Acute Optomechanical Engineer for [facility] Fwd Diagnoses Bipolar disorder, current episode manic severe with psychotic features F31.2 Depression with suicidal ideation F32.A; R45.851 Hypothyroid E03.9
[2021-11-27] MEDS: trazodone 50 mg Tablet PO (20:05)
[2021-11-27 21:25] VITALS: BP 99/74; PULSE 92; RESP 16; TEMP 36.8
[2021-11-28 06:00] VITALS: BP 126/88; PULSE 79; RESP 18; TEMP 36.5; O2SAT 100
[2021-11-28] MEDS: acetaminophen 325 mg Tablet 650 MG PO ×2 (06:15→22:55)
[2021-11-28] MEDS: nicotine 2 mg Gum BUCCAL (07:43)
[2021-11-28] MEDS: ARIPiprazole 10 mg Tablet 20 MG PO (08:35)
[2021-11-28] MEDS: OLANZapine 5 mg ODT PO ×3 (08:35→22:56)
[2021-11-28] MEDS: ibuprofen 800 mg tablet PO (08:51)
[2021-11-28] MEDS: magnesium hydroxide 30 mL UDC PO (08:52)
[2021-11-28] MEDS: ondansetron 4 MG Tablet PO (09:39)
--- NOTE | 2021-11-28 09:41 | PC.NURSE ---
Pt complains of motion sickness, administered a zofran for nausea. Vital signs BP 104/71 P 94 SPO2 98%RA
[2021-11-28] MEDS: zinc oxide oint 30 gm 1 APPLIC TOPICAL (10:43)
[2021-11-28] MEDS: phenyleph-mineral oil-petrolat Oint 28 gm 1 APPLIC TOPICAL (10:43)
[2021-11-28 11:42] LABS: Add Urine Microscopic? NO; Charge for UA Resulting for Rev
--- NOTE | 2021-11-28 12:10 | PC.NURSE ---
PT MOTHER CALLED THE UNIT WITH GRE[employer]ERNS. PT MOTHER STATES PT IS CALLING HER THREATENING TO KILL HER MARZENA FATHER WHEN SHE IS DISCHARGED. PT MOTHER ALSO STATES PT IS MAKING COMMENTS ABOUT HER AND HER STEP FATHER. PT STATED TO MOM AND GRANDMA OVER THE PHONE I KNOW HOW TO PLAY THE GAME, I WILL TAKE THE MEDS WHILE I AM HERE BUT YOU KNOW I WILL NOT TAKE THEM WHEN I AM DISCHARGED. MOTHER IS VERY CONCERNED ABOUT HER GETTING DISCHARGED.
[2021-11-28 12:30] LABS: Urine Appearance Clear (CLEAR); Urine Color Colorless (Yellow); pH Urine 8 (5-7)
[2021-11-28 12:31] LABS: Bilirubin Urine Neg (Negative); Blood Urine Neg (Negative); Glucose Urine UA Norm (Normal); Ketones Urine Negative (Negative); Leukocyte Esterase Urine Negative (Negative); Nitrate Urine Negative (Negative); Protein Urine Neg (Negative); Sulfosalicylic Acid Urine Negative (Negative); Urobilinogen Urine Norm (Negative)
[2021-11-28 14:00] VITALS: BP 112/77; PULSE 88; RESP 20; TEMP 36.6; O2SAT 96
--- NOTE | 2021-11-28 18:37 | P.NPUPN_ITS ---
Subjective NPU Subjective: Patient presents today reporting that she is happy about discharge tomorrow. We discussed the plan as to what she would do once she was released. She reports that she plans on going home and may be going out to eat with friends basically trying to chill. She reports she hopes to see her daughter possible but is not sure that that is going to happen. We discussed the importance of her taking her medication for another 12 days or so then she will be totally on the injection. We talked about the importance of follow-up. She had a almost visit with her mother that ended poorly. She denied any active desire to hurt anyone but does endorse her very boisterous attitude and conversations. Mental Status Exam MSE Comments: This is a well-nourished, well-developed, white female, in hospital scrubs, with adequate grooming, and eye contact. No abnormal movements except for mild psychomotor agitation. Cooperative with exam in mild distress. Speech was more normal volume and rate and less pressured. Mood described as okay, affect less irritable.? Thought process, organized.? Thought content: patient denies suicidal or homicidal ideation, there were no delusions reported or noted, she denied auditory or visual hallucinations.? Attention, concentration, and memory appear intact but were not formally tested. She is alert and oriented times three. Insight and judgment appear limited but i mproving, impulse control is limited, but improving Vitals/I&O/Wt Last Vital Signs Temp 97.8 F 11/28/21 14:00 Pulse 88 11/28/21 14:00 Resp 17 11/28/21 19:57 BP 112/77 11/28/21 14:00 Pulse Ox 96 11/28/21 14:00 Data NPU : 11/19/21 17:52 11/19/21 17:52 A&P Assessment and plan (1) Bipolar disorder, current episode manic severe with psychotic features: Status: Acute (2) Depression with suicidal ideation: Status: Acute Plan This is a 25-year-old, white female, who presents with erratic behavior and possible manic presentation on a 96-hour hold, not desiring medication at this time. RECOMMENDATION AND PLAN: 1. Continue current medications.? Increased Abilify to 15 mg p.o. every morning.? Started Abilify Maintena 400 mg IM. 2. Encourage individual, group, and milieu therapy. 3. Continue q-15 minute checks for safety. 4. Encourage sober living treatment after discharge, at the highest level of care, to which she is willing to commit. 5. ? Patient agreed to stay till Wednesday.? We will work on a plan for safe ty during that time.? She is allowed us to engage with her mother now. Involuntary Hold Information 96 Hour Hold: 96 Hour Involuntary Admission: Yes 96 Hour Hold Ending Date: 11/25/21 96 Hour Hold Ending Time: 19:43 Attestations NPU Medical Necessity Statement*: Inpatient hospitalization is medically necessary and the clinically appropriate intervention, at this time. We will monitor medications and make changes as indicated.? Tentative plan for discharge tomorrow. Coding Level of Care Code Acute Wood Inspector for [facility] Fwd Diagnoses Bipolar disorder, current episode manic severe with psychotic features F31.2 Depression with suicidal ideation F32.A; R45.858
[2021-11-28 19:57] VITALS: RESP 17
--- NOTE | 2021-11-28 23:56 | PC.NURSE ---
patient pressured, coming up to nurses station, states someone is gonna I feel it
--- NOTE | 2021-11-28 23:58 | PC.NURSE ---
patient anxious, agitated. stating I just want to sleep I am freaking out someone is gonna . Patient brought bible up to nurses station with various highlighted passages about .
--- NOTE | 2021-11-29 00:04 | PC.NURSE ---
patient unable to be verbally redirected. patient speech pressured, rambling. patient keeps saying benadryl helps me sleep it knocks me out I just want to sleep and someone is gonna I feel it. Is my family safe? I don't think someone will on this unit but somewhere in the hospital . Patient visibly anxious and agitated.
[2021-11-29] MEDS: LORazepam 2 mg Tablet PO (00:09)
[2021-11-29] MEDS: diphenhydrAMINE 50 mg Capsule PO (00:09)
[2021-11-29] MEDS: haloperidol 5 mg Tablet PO (00:10)
[2021-11-29 05:50] VITALS: BP 112/77; PULSE 88; RESP 17; TEMP 36.6; O2SAT 96
[2021-11-29 06:23] VITALS: BP 96/57; PULSE 66; RESP 16; TEMP 36.4; O2SAT 94
[2021-11-29] MEDS: ARIPiprazole 10 mg Tablet 20 MG PO (08:01)
[2021-11-29] MEDS: acetaminophen 325 mg Tablet 650 MG PO (08:01)
--- NOTE | 2021-11-29 08:56 | PC.NURSE ---
AM ASSESSMENT UP IN ROOM, C/O HEAD ACHE. MED NURSE GAVE TYLENOL ORDERED. DID REPORT PAIN 5/10. REPORTS SHE SLEPT WELL. DOES HAVE PRESSURED SPEECH THAT IS FAST AND RAMBLING. WANTS THIS RN TO READ WHAT SHE HIGHLIGHTED OUT OF THE BIBLE, REPORTS SHE HAS A FEELING THAT SOMEONE IS GOING TO AND WHAT I READ IN THE BIBLE VERIFIES IT. SUPPORT GIVEN. DENIES SI/HI AND AVH AT THIS TIME. CONTINUES TO BE ENVASIVE AND INTRUSIVE WITH STAFF AND WILL NOT LEAVE THE WINDOW. WHEN ASKED WHAT SHE NEEDS, STATES NOTHING I JUST WANT TO STAND HERE AND TALK AND LOOK AT YOU. THIS NURSE CONTINUES TO VERBALLY REDIRECT WITH LITTLE EFFECT.
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
[2021-11-29 11:56] VITALS: BP 96/57; PULSE 66; RESP 16; TEMP 36.4; O2SAT 94
--- NOTE | 2021-11-29 13:43 | PC.NURSE ---
DISCHARGE NOTE ALL DISCHARGE TEACHING AND REVIEW OF APPOINTMENT COMPLETED. EDUCATED ON NEW MEDICATIONS. VSS. DENIES PAIN. DENIES SI/HI AND AVH AT THIS TIME. ALL QUESTIONS ANSWERED AND SUPPORT VOICED.
== END 2021-11-29 13:44 | disposition home or self-care (01) | DRG 885 ==
LOC: ER 18:56 → NP 20:03
PROVIDERS: Psychiatry & Neurology Psychiatry; Admitting Provider Psychiatry & Neurology Psychiatry; Emergency Provider Emergency Medicine; Visit Provider Psychiatry & Neurology Psychiatry
DX: F31.2 Bipolar disorder, current episode manic severe with psychotic features (principal); R45.851 Suicidal ideations; F17.210 Nicotine dependence, cigarettes, uncomplicated; R45.850 Homicidal ideations; F43.10 Post-traumatic stress disorder, unspecified; E03.9 Hypothyroidism, unspecified
CPT/HCPCS: 73620; 80053; 80306; 80307; 81001; 81003; 83690; 85025; 96372; 97150; 97165; 99285; Q0162; Q0163

== ENCOUNTER 2021-12-01 08:17 | Emergency (ER) | payer MEDICAID, SELFPAY ==
--- NOTE | 2021-12-01 08:24 | W.ED.PSYCHS ---
HPI - Psych General: Chief Complaint: Psychiatric Symptoms Stated Complaint: ANXIETY, MED ADJUSTMENT Time Seen by Provider: 12/01/21 08:17 Source: patient Mode of arrival: EMS Limitations: no limitations History of Present Illness: 26 yo female presents via EMS acutely manic. She was discharged 2 days ago from [facility]. At that time she was manic with some psychotic features. She was started on Abilify long-term injection and then a daily dose as well as increased to 20 mg daily as well as Lexapro 20 mg daily. She denies any suicidal homicidal ideation. She is aware of her current condition including the potential for deterioration. She voluntarily gave up her phone because she was concerned that if she became upset she might actually throw it but she had no aggressive behavior verbally or physically at the time I seen her. She is actually in fairly good spirits. She also admits she has not slept since she was discharged home. complaint: other (Abby) Onset (ago): hour(s) Duration: constant History of same: Yes Relieving factors: none Exacerbating factors: none Context: not taking psychiatric medications Associated psychiatric symptoms: none Associated symptoms: Reports racing thoughts; Deny auditory hallucinations, visual hallucinations, delusions, depression, homicidal ideation or suicidal ideation Treatments prior to arrival: none Review of Systems Const: Denies: fever(s), chills, body aches, change in appetite, fatigue or malaise ENMT: Denies: throat pain, ear or mastoid pain, nasal discharge or nasal congestion Card: Denies: chest pain, edema, dyspnea on exertion or orthopnea Resp: Denies: dyspnea, productive cough or non-productive cough GI: Denies: abdominal pain, nausea, vomiting, hematemesis, coffee ground emesis, diarrhea, constipation, bloating, hematochezia or melena : Denies: flank pain, difficulty voiding, dysuria, urinary frequency or urinary urgency Skin/Breast: Denies: rash or pruritus Psych: Denies: depression, visual hallucinations, auditory hallucinations, suicidal ideation or homicidal ideation PFS ED PFSH: Medical History Hypothyroid Per records, patient had been taking [place] Thyroid. Surgical History History of tonsillectomy age 8 Family History Grandmother Cancer Breast Grandfather Dementia Father Diabetes Social History Smoking and tobacco status: never smoked Alcohol intake: current Alcohol intake frequency: holidays/special occasions only Other details last substance use: Denies drug use Female Reproductive History: Date of last menstrual period: 08/26/20 Physical Exam Const: GENERAL APPEARANCE: cooperative and comfortable ORIENTATION/CONSCIOUSNESS: Yes awake, Yes oriented to person, Yes oriented to place and Yes oriented to time HENMT: COMMON NORMALS: normocephalic and atraumatic HEAD & SCALP: normocephalic and atraumatic Neck/C-Spine: COMMON NORMALS: no JVD Resp: COMMON NORMALS: normal respiratory effort, No retractions, No use of accessory muscles and clear to auscultation bilaterally AUSCULTATION: clear to auscultation bilaterally Cardio: COMMON NORMALS: no JVD, regular rate, regular rhythm and No murmurs present (Cardio) RATE: regular rate RHYTHM: regular rhythm Extremity: COMMON NORMALS: normal to inspection, capillary refill normal, no clubbing, cyanosis or edema, no calf tenderness and no pedal edema Neuro: SENSORIUM/ORIENTATION: Yes oriented to person, Yes oriented to place and Yes oriented to time Psych: ACTIVITY/MOTOR BEHAVIOR: Yes hyperactivity SPEECH: Yes excessive and Yes rapid MOOD & AFFECT: Yes anxious THOUGHT CONTENT: No delusions Skin: COMMON NORMALS: no rashes or lesions noted GENERAL SKIN EXAM: no rashes or lesions noted Course Vital Signs: Vital signs: Vital Signs Temperature 98.0 F 12/01/21 08:30 Pulse Rate 96 12/01/21 09:03 Respiratory Rate 20 H 12/01/21 08:30 Blood Pressure 124/92 12/01/21 09:03 Pulse Oximetry 98 12/01/21 09:03 [facility] - Psych Medical Decision Making Discussed Dr. Valencia. This point patient does not necessarily require rehospitalization she is still a bit manic she did get Abilify IM before she left she also should be on some p.o. We gave her Ativan escitalopram and Abilify doses here that she was normally prescribed contact pharmacy they do have the prescription she is advised to pick them up immediately after leaving. Dr. Valencia concurs this is a best plan for her at this time. Medical Records I reviewed the patient's medical records. Lab Data I reviewed the patient's lab results. Discharge Plan Discharge Patient Disposition: Home Clinical Impression: Bipolar disorder, manic Condition: Stable Prescriptions: No Action norgestimate-ethinyl estradiol [Tri-Sprintec (28)] 0.18/0.215/0.25 mg-35 mcg (28) tablet 1 tab PO DAILY Qty: 84 3RF multivitamin Tablet 1 tab PO DAILY 0RF cholecalciferol (vitamin D3) [Vitamin D3] 25 mcg (1,000 unit) Capsule 25 mcg PO DAILY 0RF aripiprazole 10 mg Tablet 20 mg PO DAILY 12 Days Qty: 12 0RF Abilify Maintena 400 mg suspension,extended rel recon 400 mg IM Q28D 30 Days Qty: 1 1RF Rx Instructions: Next injection between 12/25-12/27/21 Discharge Orders: Discharge ED (Routine); Ordered 12/01/21 Ordered By: Derek Devlin Discharge Diet: Usual diet Discharge Activity: Increase activity as tolerated Patient Instructions: Opioid Safety Activity Restrictions/Additional Instructions: Your prescriptions are available at [facility] outpatient pharmacy. Recommend you pick them up today. Follow-up with [facility] as scheduled at the time of your discharge from [facility] you. Coding Level of Care Code ED Childcare Worker for Lisa Fwodessa Exam Comprehensive
[2021-12-01 08:30] VITALS: BP 124/92; PULSE 98; RESP 20; TEMP 36.7; O2SAT 98; BMI 26.4
[2021-12-01] MEDS: LORazepam 2 mg Tablet PO (08:50)
[2021-12-01] MEDS: ARIPiprazole 10 mg Tablet 20 MG PO (08:50)
[2021-12-01] MEDS: escitalopram 10 mg Tablet 20 MG PO (08:50)
[2021-12-01 09:03] VITALS: BP 124/92; PULSE 96; O2SAT 98
== END 2021-12-01 09:06 | disposition home or self-care (01) ==
PROVIDERS: Emergency Provider Family Medicine
DX: F31.10 Bipolar disorder, current episode manic without psychotic features, unspecified (principal)
CPT/HCPCS: 99283

== ENCOUNTER 2021-12-03 13:55 | Inpatient (IN) | payer MEDICAID, SELFPAY ==
--- NOTE | 2021-12-03 14:06 | W.ED.PSYCHS ---
Documented by User: PITER Sim 12/03/21 16:01 HPI - Psych General: Chief Complaint: Psychiatric Symptoms Stated Complaint: PSYCH EVAL/ SI Time Seen by Provider: 12/03/21 13:55 Source: patient and EMS Mode of arrival: EMS Limitations: no limitations History of Present Illness: Patient is a 26-year-old female with a history of bipolar here via EMS for evaluation of possible suicidality. Patient tells me today she threw her cell phone at her neighbor's house and then called the police and told the police that she was suicidal. Police filed an affidavit on patient that states patient told him she wanted to cut herself. Upon arrival patient tells me she always feels suicidal and homicidal. She does tell me she has an urge to cut but only because she wants to see blood not to kill herself. Patient was seen in our ED 2 days ago. She was recently discharged from NPU for mayra. Patient tells me she has not been able to eat or sleep and has been several walking miles daily to try and calm down . MD complaint: suicidal ideation and other (mayra) Associated symptoms: Reports homicidal ideation and suicidal ideation; Deny auditory hallucinations or visual hallucinations Treatments prior to arrival: other (affidavit ) If self harm: admits thoughts of self harm Review of Systems Const: Denies: fever(s) or chills Card: Denies: chest pain, palpitations, lightheadedness or syncope Resp: Denies: dyspnea GI: Denies: abdominal pain, nausea, vomiting or diarrhea Skin/Breast: Denies: rash Neuro: Denies: headache(s) Psych: Reports: anxiety, mood swings, sleeping less, change in appetite, suicidal ideation and homicidal ideation; Denies: visual hallucinations or auditory hallucinations [facility] ED PFSH: Medical History Hypothyroid Per records, patient had been taking [place] Thyroid. Psychiatric care Surgical History History of tonsillectomy age 8 Family History Grandmother Cancer Breast Grandfather Dementia Father Diabetes Social History Smoking and tobacco status: never smoked Alcohol intake: current Alcohol intake frequency: holidays/special occasions only Other details last substance use: Denies drug use Female Reproductive History: Date of last menstrual period: 08/26/20 Physical Exam Const: COMMON NORMALS: no acute distress, patient oriented x3, alert and well nourished GENERAL APPEARANCE: cooperative and well kempt Resp: COMMON NORMALS: normal respiratory effort and clear to auscultation bilaterally AUSCULTATION: clear to auscultation bilaterally Cardio: COMMON NORMALS: regular rate and regular rhythm RATE: regular rate RHYTHM: regular rhythm Neuro: ODETTE COMA SCALE: document GCS findings [place] coma scale eye opening: Spontaneous [place] coma scale verbal response: Orientated [place] coma scale motor response: Obey commands [place] coma scale total score: 15 COMMON NORMALS: patient oriented x3 SENSORIUM/ORIENTATION: Yes alert Psych: COMMON NORMALS: mental status grossly normal, Normal thought process present, cooperative and denies hallucinations APPEARANCE: Yes grossly normal and Yes well kempt ACTIVITY/MOTOR BEHAVIOR: Yes appropriate eye contact and No psychomotor agitation SPEECH: Yes excessive MOOD & AFFECT: Yes elevated mood THOUGHT PROCESS: Normal thought process present ATTENTION/CONCENTRATION: Yes attention grossly intact and Yes concentration grossly intact MEMORY/COGNITION: Yes memory grossly intact and Yes cognition grossly intact INSIGHT: Fair insight present (Psych) JUDGEMENT: Fair judgement present (Psych) Course Consultations: Consultation #1: Dr. Valencia-will admit to NPU Vital Signs: Vital signs: Vital Signs Temperature 97.5 F L 12/04/21 20:42 Pulse Rate 76 12/04/21 20:42 Respiratory Rate 16 12/04/21 20:42 Blood Pressure 88/55 12/04/21 20:42 Pulse Oximetry 99 12/04/21 20:42 [facility] - Psych Medical Decision Making Patient is voluntary with affidavit at this time. I spoken to Dr. Valencia who would like her admitted to NPU. Patient is cleared medically. Lab Data : 12/03/21 14:38 12/03/21 14:38 Laboratory Results WBC 12.1 10^3/uL (4.0-10.0) H 12/03/21 14:38 RBC 4.57 10^6/uL (4.1-5.3) 12/03/21 14:38 Hgb 13.6 g/dL (11.5-15.3) 12/03/21 14:38 Hct 41.2 % (37.0-47.0) 12/03/21 14:38 MCV 90.2 fl (81-99) 12/03/21 14:38 MCH 29.8 pg (28.0-34.0) 12/03/21 14:38 MCHC 33.0 g/dL (30.0-36.0) 12/03/21 14:38 RDW 12.6 % (12.1-15.1) 12/03/21 14:38 Plt Count 230 10^3/cmm (130-400) 12/03/21 14:38 MPV 10.5 fL (7.4-10.4) H 12/03/21 14:38 Neut % (Auto) 73.3 % 12/03/21 14:38 Lymph % (Auto) 18.3 % 12/03/21 14:38 Wallace % (Auto) 7.0 % 12/03/21 14:38 Eos % (Auto) 0.8 % 12/03/21 14:38 Baso % (Auto) 0.4 % 12/03/21 14:38 Neut # (Auto) 8.82 10^3/uL (1.8-7.7) H 12/03/21 14:38 Lymph # (Auto) 2.2 10^3/uL (0.8-4.8) 12/03/21 14:38 Wallace # (Auto) 0.8 10^3/uL (0.2-0.9) 12/03/21 14:38 Eos # (Auto) 0.1 10^3/uL (0.0-0.8) 12/03/21 14:38 Baso # (Auto) 0.1 10^3/uL (0.0-0.1) 12/03/21 14:38 Nucleated RBC % (auto) 0 % 12/03/21 14:38 Nucleated RBCs # 0.0 /100WBC 12/03/21 14:38 Sodium 139 mmol/L (136-145) 12/03/21 14:38 Potassium 3.8 mmol/L (3.5-5.1) 12/03/21 14:38 Chloride 104 mmol/L (98-107) 12/03/21 14:38 Carbon Dioxide 25 mmol/L (22-29) 12/03/21 14:38 Anion Gap 13.8 (5-19) 12/03/21 14:38 BUN 11 mg/dL (6-20) 12/03/21 14:38 Creatinine 0.7 mg/dL (0.5-0.9) 12/03/21 14:38 GFR Calculation 102.0 mL/min (90-130) 12/03/21 14:38 Glucose 104 mg/dL (65-115) 12/03/21 14:38 Calculated Osmolality 288 mOsm/kg (285-295) 12/03/21 14:38 Calcium 9.8 mg/dL (8.5-10.5) 12/03/21 14:38 Total Bilirubin 0.3 mg/dL (0.15-1.2) 12/03/21 14:38 AST 21 U/L (0-32) 12/03/21 14:38 ALT 18 U/L (0-33) 12/03/21 14:38 Alkaline Phosphatase 82 IU/L (35-105) 12/03/21 14:38 Creatine Kinase 136 U/L (26-192) 12/03/21 14:38 Total Protein 6.7 g/dL (6.6-8.7) 12/03/21 14:38 Albumin 4.7 g/dL (3.5-5.2) 12/03/21 14:38 Globulin 2.0 g/dL (1.3-4.6) 12/03/21 14:38 HCG, Qual Negative (Negative) 12/03/21 14:38 Salicylates < 0.3 mg/dL (3-10) L 12/03/21 14:38 Urine Opiates Screen Negative ng/mL (Negative) 12/03/21 14:22 Acetaminophen < 5.0 ug/mL (10-30) L 12/03/21 14:38 Ur Barbiturates Screen Negative ng/mL (Negative) 12/03/21 14:22 Ur Phencyclidine Scrn Negative ng/mL (Negative) 12/03/21 14:22 Ur Amphetamines Screen Negative ng/mL (Negative) 12/03/21 14:22 U Benzodiazepines Scrn Negative ng/mL (Negative) 12/03/21 14:22 Urine Cocaine Screen Negative ng/mL (Negative) 12/03/21 14:22 U Marijuana (THC) Screen Negative ng/mL (Negative) 12/03/21 14:22 Ethyl Alcohol < 10 mg/dL (0-10) 12/03/21 14:38 RPR Nonreactive (Nonreactive) 12/03/21 14:38 HIV 1&2 Ab & HIV 1 Ag Non-reactive (Non-Reactiv) 12/03/21 14:38 HIV 1&2 Antibody Non-reactive (Non-Reactiv) 12/03/21 14:38 Discharge Plan Discharge Patient Disposition: Admitted As Inpatient Admit Provider: Juan Valencia Clinical Impression: Bipolar disorder, manic, Suicidal ideation Condition: Stable Coding Level of Care Code ED Scalloper for Chg Fwd Exam Detailed Documented by User: Wilber Grimaldo MD 12/05/21 00:08 HPI - Psych General: Chief Complaint: Psychiatric Symptoms Stated Complaint: PSYCH EVAL/ SI Time Seen by Provider: 12/03/21 13:55 PFSH ED PFSH: Medical History Hypothyroid Per records, patient had been taking [place] Thyroid. Psychiatric care Surgical History History of tonsillectomy age 8 Family History Grandmother Cancer Breast Grandfather Dementia Father Diabetes Social History Smoking and tobacco status: never smoked Alcohol intake: current Alcohol intake frequency: holidays/special occasions only Other details last substance use: Denies drug use Physical Exam Neuro: DOETTE COMA SCALE: document GCS findings [place] coma scale total score: 15 Course Vital Signs: Vital signs: Vital Signs Temperature 97.5 F L 12/04/21 20:42 Pulse Rate 76 12/04/21 20:42 Respiratory Rate 16 12/04/21 20:42 Blood Pressure 88/55 12/04/21 20:42 Pulse Oximetry 99 12/04/21 20:42 MDM - Psych Medical Decision Making Patient is voluntary with affidavit at this time. I spoken to Dr. Valencia who would like her admitted to NPU. Patient is cleared medically. I discussed this patient with and have reviewed this documentation by PITER Sim. I reviewed laboratory studies. Wilber Grimaldo MD Emergency Medicine Lab Data : 12/03/21 14:38 12/03/21 14:38 Laboratory Results WBC 12.1 10^3/uL (4.0-10.0) H 12/03/21 14:38 RBC 4.57 10^6/uL (4.1-5.3) 12/03/21 14:38 Hgb 13.6 g/dL (11.5-15.3) 12/03/21 14:38 Hct 41.2 % (37.0-47.0) 12/03/21 14:38 MCV 90.2 fl (81-99) 12/03/21 14:38 MCH 29.8 pg (28.0-34.0) 12/03/21 14:38 MCHC 33.0 g/dL (30.0-36.0) 12/03/21 14:38 RDW 12.6 % (12.1-15.1) 12/03/21 14:38 Plt Count 230 10^3/cmm (130-400) 12/03/21 14:38 MPV 10.5 fL (7.4-10.4) H 12/03/21 14:38 Neut % (Auto) 73.3 % 12/03/21 14:38 Lymph % (Auto) 18.3 % 12/03/21 14:38 Wallace % (Auto) 7.0 % 12/03/21 14:38 Eos % (Auto) 0.8 % 12/03/21 14:38 Baso % (Auto) 0.4 % 12/03/21 14:38 Neut # (Auto) 8.82 10^3/uL (1.8-7.7) H 12/03/21 14:38 Lymph # (Auto) 2.2 10^3/uL (0.8-4.8) 12/03/21 14:38 Wallace # (Auto) 0.8 10^3/uL (0.2-0.9) 12/03/21 14:38 Eos # (Auto) 0.1 10^3/uL (0.0-0.8) 12/03/21 14:38 Baso # (Auto) 0.1 10^3/uL (0.0-0.1) 12/03/21 14:38 Nucleated RBC % (auto) 0 % 12/03/21 14:38 Nucleated RBCs # 0.0 /100WBC 12/03/21 14:38 Sodium 139 mmol/L (136-145) 12/03/21 14:38 Potassium 3.8 mmol/L (3.5-5.1) 12/03/21 14:38 Chloride 104 mmol/L (98-107) 12/03/21 14:38 Carbon Dioxide 25 mmol/L (22-29) 12/03/21 14:38 Anion Gap 13.8 (5-19) 12/03/21 14:38 BUN 11 mg/dL (6-20) 12/03/21 14:38 Creatinine 0.7 mg/dL (0.5-0.9) 12/03/21 14:38 GFR Calculation 102.0 mL/min (90-130) 12/03/21 14:38 Glucose 104 mg/dL (65-115) 12/03/21 14:38 Calculated Osmolality 288 mOsm/kg (285-295) 12/03/21 14:38 Calcium 9.8 mg/dL (8.5-10.5) 12/03/21 14:38 Total Bilirubin 0.3 mg/dL (0.15-1.2) 12/03/21 14:38 AST 21 U/L (0-32) 12/03/21 14:38 ALT 18 U/L (0-33) 12/03/21 14:38 Alkaline Phosphatase 82 IU/L (35-105) 12/03/21 14:38 Creatine Kinase 136 U/L (26-192) 12/03/21 14:38 Total Protein 6.7 g/dL (6.6-8.7) 12/03/21 14:38 Albumin 4.7 g/dL (3.5-5.2) 12/03/21 14:38 Globulin 2.0 g/dL (1.3-4.6) 12/03/21 14:38 HCG, Qual Negative (Negative) 12/03/21 14:38 Salicylates < 0.3 mg/dL (3-10) L 12/03/21 14:38 Urine Opiates Screen Negative ng/mL (Negative) 12/03/21 14:22 Acetaminophen < 5.0 ug/mL (10-30) L 12/03/21 14:38 Ur Barbiturates Screen Negative ng/mL (Negative) 12/03/21 14:22 Ur Phencyclidine Scrn Negative ng/mL (Negative) 12/03/21 14:22 Ur Amphetamines Screen Negative ng/mL (Negative) 12/03/21 14:22 U Benzodiazepines Scrn Negative ng/mL (Negative) 12/03/21 14:22 Urine Cocaine Screen Negative ng/mL (Negative) 12/03/21 14:22 U Marijuana (THC) Screen Negative ng/mL (Negative) 12/03/21 14:22 Ethyl Alcohol < 10 mg/dL (0-10) 12/03/21 14:38 RPR Nonreactive (Nonreactive) 12/03/21 14:38 HIV 1&2 Ab & HIV 1 Ag Non-reactive (Non-Reactiv) 12/03/21 14:38 HIV 1&2 Antibody Non-reactive (Non-Reactiv) 12/03/21 14:38 Discharge Plan Discharge Patient Disposition: Admitted As Inpatient Admit Provider: Juan Valencia Clinical Impression: Bipolar disorder, manic, Suicidal ideation Condition: Stable Coding Level of Care Code ED Scalloper for Lisa Fwd Exam Detailed
[2021-12-03 14:52] LABS: Basophils # 0.1 10^3/uL (0.0-0.1); Basophils % 0.4 %; Eosinophils # 0.1 10^3/uL (0.0-0.8); Eosinophils % 0.8 %; Hematocrit 41.2 % (37.0-47.0); Hemoglobin 13.6 g/dL (11.5-15.3); Lymphocytes # 2.2 10^3/uL (0.8-4.8); Lymphocytes % 18.3 %; Mean Corpuscular Hemoglobin 29.8 pg (28.0-34.0); Mean Corpuscular Volume 90.2 fl (81-99); Mean Platelet Volume 10.5 fL (7.4-10.4); Monocytes # 0.8 10^3/uL (0.2-0.9); Neutrophils # 8.82 10^3/uL (1.8-7.7); Neutrophils % 73.3 %; Nucleated Red Blood Cells % 0 %; Platelet Count 230 10^3/cmm (130-400); Red Blood Count 4.57 10^6/uL (4.1-5.3); Red Cell Distribution Width 12.6 % (12.1-15.1); White Blood Count 12.1 10^3/uL (4.0-10.0)
[2021-12-03 14:54] LABS: Amphetamines Screen Urine Negative (Negative); Barbiturates Screen Urine Negative (Negative); Benzodiazepines Screen Urine Negative (Negative); Cocaine Screen Urine Negative (Negative); Opiate Screen Urine Negative (Negative); PCP Screen Urine Negative (Negative); THC Screen Urine Negative (Negative)
[2021-12-03 15:18] LABS: Alanine Aminotransferase 18 U/L (0-33); Albumin Level 4.7 g/dL (3.5-5.2); Alkaline Phosphatase 82 IU/L (35-105); Aspartate Amino Transferase 21 U/L (0-32); Blood Urea Nitrogen 11 mg/dL (6-20); Calcium 9.8 mg/dL (8.5-10.5); Carbon Dioxide 25 mmol/L (22-29); Chloride 104 mmol/L (98-107); Creatine Phosphokinase 136 U/L (26-192); Glucose 104 mg/dL (65-115); Osmolality Calculated 288 mOsm/kg (285-295); Sodium 139 mmol/L (136-145); Total Bilirubin 0.3 mg/dL (0.15-1.2); Total Protein 6.7 g/dL (6.6-8.7)
[2021-12-03 15:19] LABS: Acetaminophen < 5.0 ug/mL (10-30); Alcohol Level < 10 mg/dL (0-10); HCG, Serum Qual Negative (Negative); Salicylate < 0.3 mg/dL (3-10)
[2021-12-03] MEDS: sodium chloride 0.9% 1,000 ML 999 ML IV (15:20)
[2021-12-03 15:21] LABS: Anion Gap 13.8 (5-19); Potassium 3.8 mmol/L (3.5-5.1)
[2021-12-03 15:44] VITALS: BP 129/91; PULSE 101; RESP 18; O2SAT 100
--- NOTE | 2021-12-03 16:49 | PC.NURSE ---
report Lor RN
--- NOTE | 2021-12-03 17:26 | PC.NURSE ---
patient is asleep on the ED cart, patient is awaiting transport when room is clean.
[2021-12-03 17:59] VITALS: BP 126/85; PULSE 99; RESP 17; TEMP 36.7; O2SAT 98
[2021-12-03] MEDS: trazodone 50 mg Tablet PO (20:00)
[2021-12-03] MEDS: ondansetron 4 MG Tablet PO (20:22)
[2021-12-03 20:44] VITALS: BP 118/80; PULSE 105; RESP 16; TEMP 36.6; O2SAT 98
[2021-12-04] MEDS: hyDROXYzine 25 mg Capsule 50 MG PO ×2 (01:50→09:51)
[2021-12-04 03:22] LABS: Add Urine Microscopic? NO; Charge for UA Resulting for Rev
[2021-12-04 03:33] LABS: Bilirubin Urine Neg (Negative); Blood Urine Neg (Negative); Glucose Urine UA Norm (Normal); Ketones Urine Negative (Negative); Leukocyte Esterase Urine Negative (Negative); Nitrate Urine Negative (Negative); Protein Urine Neg (Negative); Specific Gravity, Urine 1.015 (1.005-1.030); Urine Appearance Clear (CLEAR); Urine Color Yellow (Yellow); Urobilinogen Urine Norm (Negative); pH Urine 6.5 (5-7)
[2021-12-04 06:00] VITALS: BP 99/68; PULSE 87; RESP 20; TEMP 36.4; O2SAT 96
[2021-12-04] MEDS: acetaminophen 325 mg Tablet 650 MG PO (06:11)
[2021-12-04] MEDS: ARIPiprazole 10 mg Tablet 20 MG PO (08:27)
[2021-12-04] MEDS: nicotine 2 mg Gum BUCCAL (08:27)
[2021-12-04] MEDS: OLANZapine 5 mg ODT PO ×2 (08:27→17:16)
--- NOTE | 2021-12-04 10:22 | PC.NURSE ---
ASSESSMENT COMPLETED WITHOUT ISSUES. DOES HAVE PRESSURED, EXCESSIVE SPEECH AND RAMBLES ABOUT MOTHER AND GRANDMOTHER. REPORTS MANY ISSUES WITH FAMILY. DENIES PAIN. DENIES SI/HI AND AVH AT THIS TIME. STATES, I JUST CAN'T MAKE IT ON MY OWN AND MISS MY DAUGHTER. ALL QUESTIONS ANSWERED AND SUPPORT VOICED.
--- NOTE | 2021-12-04 11:59 | PC.NURSE ---
NEW ORDER C/O NOT BEING ABLE TO HAVE A BM DUE TO MULTIPLE PEOPLE BEING AROUND. STATES THIS IS A USUAL PROBLEM SHE EXPERIENCES WHEN SHE IS NOT ABLE TO GO AT HOME. NEW ORDERS RECEIVED FOR COLACE 100MG PO BID. WILL ADMINISTER FIRST DOSE ORDERED. BS ACTIVE TIMES FOUR. NO DISTENTION NOTED, NON TENDER, FLAT AND SOFT.
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
[2021-12-04] MEDS: docusate sodium 100 mg Capsule PO ×2 (12:27→17:07)
[2021-12-04] MEDS: ondansetron 4 MG Tablet PO (12:42)
[2021-12-04] MEDS: magnesium hydroxide 30 mL UDC PO (13:48)
--- NOTE | 2021-12-04 13:49 | PC.NURSE ---
NEW ORDERS CONTINUES TO C/O CONSTIPATION. NEW ORDERS RECEIVED TO GIVE MOM 30 ML PO DAILY PRN. FIRST DOSE ADMINISTERED ORDERED. BS ARE STILL ACTIVE TIMES 4. PT STATES SHE IS PASSING GAS AND FEELS LIKE I'M ABOUT READY TO GO EDUCATED TO WALK AND CONTINUE TO DRINK FLUIDS. VERBALIZES UNDERSTANDING
--- NOTE | 2021-12-04 13:51 | PC.SOCIAL ---
Patient attended and participated in group.
[2021-12-04 14:00] VITALS: BP 106/68; PULSE 74; RESP 17; TEMP 36.9; O2SAT 100
--- NOTE | 2021-12-04 17:11 | PC.NURSE ---
NEW ORDERS COLACE AND MOM GIVEN ORDERED PREVIOUSLY THIS SHIFT WITH LARGE BM TIMES TWO REPORTED BY PT. BEGAN TO C/O BURNING AND PAIN WITH URINATION. PREVIOUS UA IS NEGATIVE FOR UTI. NOTIFIED DR. CHOWDHURY OF ABOVE ISSUE. NEW ORDERS RECEIVED FOR STD PANEL TO BE COMPLETED. EDUCATED PT OF ALL NEW ORDERS AND PT BECAME ANXIOUS REQUESTING SOMETHING FOR ANXIETY, ZYDIS 5 MG GIVEN ORDERED.
[2021-12-04 17:44] LABS: Rapid Plasma Reagin Syphilis Nonreactive (Nonreactive)
[2021-12-04 18:03] LABS: HIV 1 & 2 Antibody Non-Reactive (Non-Reactiv); HIV 1 & 2 Antigen Non-Reactive (Non-Reactiv)
[2021-12-04] MEDS: quetiapine 100 mg Tablet PO (20:02)
[2021-12-04] MEDS: trazodone 50 mg Tablet PO (20:02)
[2021-12-04 20:42] VITALS: BP 88/55; PULSE 76; RESP 16; TEMP 36.4; O2SAT 99
--- NOTE | 2021-12-05 04:32 | PC.NURSE ---
PATIENT REQUESTED MEDICATION TO HELP HER SLEEP. TRAZADONE WAS GIVEN.
[2021-12-05 06:00] VITALS: BP 90/54; PULSE 70; RESP 16; TEMP 36.5; O2SAT 98
[2021-12-05] MEDS: acetaminophen 325 mg Tablet 650 MG PO ×2 (06:18→18:28)
[2021-12-05] MEDS: ARIPiprazole 10 mg Tablet 20 MG PO (08:10)
[2021-12-05] MEDS: docusate sodium 100 mg Capsule PO ×2 (08:10→17:01)
[2021-12-05] MEDS: OLANZapine 5 mg ODT PO ×2 (08:15→17:01)
[2021-12-05] MEDS: haloperidol 5 mg Tablet PO (10:33)
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
[2021-12-05] MEDS: magnesium hydroxide 30 mL UDC PO (13:10)
[2021-12-05] MEDS: hyDROXYzine 25 mg Capsule 50 MG PO (13:11)
[2021-12-05 14:00] VITALS: BP 108/78; PULSE 79; RESP 18; TEMP 36.6; O2SAT 98
[2021-12-05] MEDS: nicotine 2 mg Gum BUCCAL (15:12)
--- NOTE | 2021-12-05 16:48 | PC.NURSE ---
PRN MEDICATIONS PT HAS PACED HALLWAY FREQUENTLY THROUGHOUT THE DAY AND HYPERFOCUSED ON HAVING A BM. WAS GIVEN SCHEDULED COLACE AND MOM ORDERED. PT DID REPORT RESULTS BUT STATES SHE STILL FEELS FULL HAS EATEN THE MAJORITY OF THE DAY, ALL THREE MEALS AND SEVERAL SNACKS AND DRINKS. EDUCATED THAT IF SHE FEELS FULL THAT EATING WILL ONLY INTENSIFY THE FEELING. VERBALIZED UNDERSTANDING BUT CONTINUES TO ASK FOR SNACKS AND DRINKS FREQUENTLY WHILE TELLING STAFF, WHY AM I SO HUNGRY. EDUCATED ON INCREASED HUNGER WITH ANTIPSYCHOTICS. VERBALIZED UNDERSTANDING. DID RECEIVE ZYDIS, HALDOL AND VISATRIL THROUGH THE SHIFT WITH MINIMAL RESULTS. VERBALLY REDIRECTABLE. THIS RN HAS SPOKEN TO PT THROUGHOUT THE DAY TO ENCOURAGE HER TO WALK AND CALM DOWN. EDUCATED ON BREATHING EXERCISES. DEMONSTRATED TECHNIQUE. WILL CONTINUE TO ENCOURAGE AND EDUCATE PT, PER POC.
--- NOTE | 2021-12-05 17:02 | PC.NURSE ---
PRN MEDICATION CONTINUES TO BE ANXIOUS PACING HALLWAY AND BEING FREQUENTLY INTRUSIVE AT THE NURSES STATION. ZYDIS 5 MG GIVEN FOR THE 2ND TIME THIS SHIFT FOR ANXIETY AND RESTLESSNESS.
[2021-12-05 20:26] VITALS: BP 86/56; PULSE 79; RESP 18; O2SAT 98
[2021-12-05] MEDS: quetiapine 100 mg Tablet 150 MG PO (20:34)
[2021-12-05] MEDS: trazodone 50 mg Tablet PO (20:35)
[2021-12-06] MEDS: haloperidol 5 mg Tablet PO (03:32)
[2021-12-06 05:58] VITALS: RESP 18
[2021-12-06] MEDS: magnesium hydroxide 30 mL UDC PO (08:05)
[2021-12-06] MEDS: ARIPiprazole 10 mg Tablet 20 MG PO (08:05)
[2021-12-06] MEDS: docusate sodium 100 mg Capsule PO ×2 (08:05→19:41)
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
--- NOTE | 2021-12-06 08:08 | PC.NURSE ---
PRN MILK OF MAGNESIA 30 ML GIVEN PO PER PT C/O STATED CONSTIPATION
[2021-12-06] MEDS: hyDROXYzine 25 mg Capsule 50 MG PO ×2 (09:19→17:45)
--- NOTE | 2021-12-06 09:19 | PC.NURSE ---
PRN VISTARIL 50 MG GIVEN PO PER PT C/O STATED ANXIETY. PT UP PACING UNIT, C/O CONSTIPATION ALREADY GIVEN SCHEDULED COLACE AND PRN MILK OF MAGNESIA.
[2021-12-06 10:26] VITALS: BP 108/76; PULSE 84; RESP 20; TEMP 36.6; O2SAT 98
[2021-12-06 14:00] VITALS: BP 110/72; PULSE 79; RESP 16; TEMP 36.7; O2SAT 99
--- NOTE | 2021-12-06 17:46 | PC.NURSE ---
PRN VISTARIL 50 MG GIVEN PO PER PT C/O ANXIETY. PT UPSET AND WANTS TO BE DISCHARGED THIS EVENING. EDUCATED THAT DOCTOR WOULD PROBABLY BE DISCHARGED TOMORROW. PT TOOK MEDICATIONS WITHOUT INCIDENT.
[2021-12-06] MEDS: quetiapine 100 mg Tablet 300 MG PO (19:41)
[2021-12-06] MEDS: trazodone 50 mg Tablet PO (19:41)
[2021-12-06 20:30] VITALS: BP 107/68; PULSE 90; RESP 18; TEMP 36.6; O2SAT 99
[2021-12-06] MEDS: acetaminophen 325 mg Tablet 650 MG PO (23:33)
[2021-12-07 06:00] VITALS: BP 106/71; PULSE 107; RESP 20; TEMP 36.6; O2SAT 99
[2021-12-07] MEDS: acetaminophen 325 mg Tablet 650 MG PO (06:16)
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
[2021-12-07] MEDS: benztropine 1 mg Tablet PO (07:38)
[2021-12-07] MEDS: ARIPiprazole 10 mg Tablet 20 MG PO (07:38)
[2021-12-07] MEDS: docusate sodium 100 mg Capsule PO (07:39)
[2021-12-07] MEDS: OLANZapine 5 mg ODT PO (07:49)
[2021-12-07 08:26] VITALS: BP 106/71; PULSE 107; RESP 20; TEMP 36.6; O2SAT 99
== END 2021-12-07 09:50 | disposition home or self-care (01) | DRG 885 ==
LOC: ER 14:47 → NP 17:53
PROVIDERS: Admitting Provider Psychiatry & Neurology Psychiatry; Emergency Provider Physician Assistant; Visit Provider Psychiatry & Neurology Psychiatry
DX: F31.2 Bipolar disorder, current episode manic severe with psychotic features (principal); R45.851 Suicidal ideations; E03.9 Hypothyroidism, unspecified; F51.5 Nightmare disorder; Z81.8 Family history of other mental and behavioral disorders
CPT/HCPCS: 80053; 80306; 80307; 81003; 82550; 84703; 85025; 86592; 87806; 97150; 97165; 99285; J7030; Q0162

== ENCOUNTER 2021-12-08 11:06 | Inpatient (IN) | payer MEDICAID, SELFPAY ==
--- NOTE | 2021-12-08 11:19 | ED_ITS ---
HPI - General Adult General: Stated complaint: suicidal thoughts/SI Time Seen by Provider: 12/08/21 11:14 History of Present Illness: HPI: [26]yo patient w/ hx of bipolar disorder BIBA for suicidal ideation and homicial ideation with plans. Patient tells me that she plans to kill her baby's daddy and herself because she cannot see her to. Patient has been taking medicine tells me she is very serious about this plan. On arrival, the patient is AAOx3 and cooperative with my evaluation. No focal complaints of chest pain, shortness of breath, palpitations, N/V, focal GI/ complaints. No complaints of hallucinations. Onset: acute Duration: ongoing Location: home Severity: severe Associated symptoms: Deny chest pain, dyspnea, nausea, rash, palpitations or vomiting Review of Systems Const: Denies: fever(s) or chills Eyes: Denies: change in vision ENMT: Denies: mouth pain Card: Denies: chest pain or palpitations Resp: Denies: dyspnea or non-productive cough GI: Denies: abdominal pain, nausea, vomiting or diarrhea : Denies: dysuria Musc: Denies: extremity pain Skin/Breast: Denies: rash or new lesions Neuro: Denies: weakness in extremities Psych: Reports: depression, mood swings, auditory hallucinations and homicidal ideation Edgardo/Lymph: Denies: easy bruising PFSH ED PFSH: Medical History (Updated 12/08/21 @ 11:21 by Allan Hollis MD) Bipolar disorder Hypothyroid Per records, patient had been taking [place] Thyroid. Psychiatric care Surgical History History of tonsillectomy age 8 Family History Grandmother Cancer Breast Grandfather Dementia Father Diabetes Social History Smoking and tobacco status: never smoked Alcohol intake: current Alcohol intake frequency: holidays/special occasions only Other details last substance use: Denies drug use Physical Exam Const: COMMON NORMALS: alert HENMT: COMMON NORMALS: atraumatic HEAD & SCALP: atraumatic MOUTH: moist mucous membranes not abnormal Eye: COMMON NORMALS: EOMs intact bilaterally and conjunctivae normal CONJUNCTIVA: Yes conjunctivae normal Neck/C-Spine: COMMON NORMALS: full ROM and supple Resp: COMMON NORMALS: normal respiratory effort and clear to auscultation bilaterally AUSCULTATION: clear to auscultation bilaterally Cardio: COMMON NORMALS: regular rate RATE: regular rate GI: COMMON NORMALS: Soft to palpation and non-tender PALPATION: Yes Soft to palpation Extremity: COMMON NORMALS: full ROM Neuro: SENSORIUM/ORIENTATION: Yes alert MOTOR EXAM: No Abnormal motor strength present and Other motor observations present (no focal motor deficits) Psych: COMMON NORMALS: speech normal SPEECH: Yes normal speech MOOD & AFFECT: Yes euthymic mood MDM - General Adult Medical Decision Making [26]yo patient w/ hx of bipolar disorder presenting for SI/HI. HDS, exam within normal limit Thoughts are linear and organized, and the patient has no AH/VH. Clinically the patient displays no overt toxidrome; they are well appearing, with low suspicion for toxic ingestion given history and exam. Symptoms unlikely 2/2 anemia, hypothyroidism, infection, or ICH. Workup: CBC, CMP, Lipase, salicylate/tylenol, UDS, hCG Lab findings: wnl [1:00pm] On reassessment, labs and workup wnl. Patient is hemodynamically stable with no acute medical complaints. Case discussed with psychiatric provider Dr. Lyn at [facility] psych inpatient with recommendation for admission Disposition: Psych Discharge Plan Discharge Patient Disposition: Admitted As Inpatient Clinical Impression: Depression with suicidal ideation Condition: Stable Coding Level of Care Code ED Semi Automatic Sewing Machine Operator for Lisa Valenzuela
[2021-12-08 11:27] VITALS: BP 125/91; PULSE 105; RESP 18; TEMP 36.6; O2SAT 96; BMI 26.9
--- NOTE | 2021-12-08 11:43 | PC.PHAR ---
pt states she takes care of her own medications-pt brought in medication bottles-pt states she takes xanax states [facility] or [facility] pharmacy filled it for her called both [facility] and [facility] they both state they have never filled that medication for the pt-pt states she doesnt know what mg she takes
[2021-12-08 12:12] LABS: Basophils # 0.1 10^3/uL (0.0-0.1); Basophils % 0.5 %; Eosinophils # 0.1 10^3/uL (0.0-0.8); Eosinophils % 1.1 %; Hematocrit 38.8 % (37.0-47.0); Hemoglobin 13.1 g/dL (11.5-15.3); Lymphocytes # 2.6 10^3/uL (0.8-4.8); Lymphocytes % 26.6 %; Mean Corpuscular HGB Conc 33.8 g/dL (30.0-36.0); Mean Corpuscular Hemoglobin 29.6 pg (28.0-34.0); Mean Corpuscular Volume 87.6 fl (81-99); Monocytes # 0.7 10^3/uL (0.2-0.9); Monocytes % 6.9 %; Neutrophils # 6.31 10^3/uL (1.8-7.7); Neutrophils % 64.7 %; Nucleated Red Blood Cells % 0 %; Platelet Count 257 10^3/cmm (130-400); Red Blood Count 4.43 10^6/uL (4.1-5.3); Red Cell Distribution Width 12.8 % (12.1-15.1); White Blood Count 9.8 10^3/uL (4.0-10.0)
[2021-12-08 12:14] VITALS: BP 124/82; PULSE 76; RESP 22; TEMP 36.6; O2SAT 96
[2021-12-08 12:37] LABS: Alanine Aminotransferase 19 U/L (0-33); Albumin Level 4.6 g/dL (3.5-5.2); Alkaline Phosphatase 70 IU/L (35-105); Anion Gap 16.9 (5-19); Aspartate Amino Transferase 24 U/L (0-32); Blood Urea Nitrogen 17 mg/dL (6-20); Calcium 9.6 mg/dL (8.5-10.5); Carbon Dioxide 21 mmol/L (22-29); Chloride 105 mmol/L (98-107); Creatinine Clr Calc Pharmacy 149.0688; Glomerular Filtration Rate 121.8 mL/min (90-130); Glucose 111 mg/dL (65-115); Lipase 18 U/L (13-60); Osmolality Calculated 290 mOsm/kg (285-295); Potassium 3.9 mmol/L (3.5-5.1); Sodium 139 mmol/L (136-145); Total Bilirubin 0.3 mg/dL (0.15-1.2); Total Protein 6.6 g/dL (6.6-8.7)
[2021-12-08 12:40] LABS: HCG Qualitative Urine. Negative (Negative)
[2021-12-08 12:40] LABS: Acetaminophen < 5.0 ug/mL (10-30); Salicylate < 0.3 mg/dL (3-10)
[2021-12-08 12:41] VITALS: BP 131/83; PULSE 95; RESP 17; TEMP 36.8; O2SAT 97
[2021-12-08 13:02] VITALS: BMI 26.9
[2021-12-08 13:28] LABS: Amphetamines Screen Urine Negative (Negative); Barbiturates Screen Urine Negative (Negative); Benzodiazepines Screen Urine Negative (Negative); Cocaine Screen Urine Negative (Negative); Opiate Screen Urine Negative (Negative); PCP Screen Urine Negative (Negative); THC Screen Urine Negative (Negative)
[2021-12-08 14:00] VITALS: BP 131/83; PULSE 95; RESP 17; TEMP 36.8; O2SAT 97
[2021-12-08] MEDS: acetaminophen 325 mg Tablet 650 MG PO ×2 (16:51→23:33)
[2021-12-08] MEDS: ondansetron 4 MG Tablet PO (17:51)
--- NOTE | 2021-12-08 17:52 | PC.NURSE ---
PRN ZOFRAN 4 MG GIVEN PO PER PT C/O STATED NAUSEA.
[2021-12-08] MEDS: trazodone 50 mg Tablet PO (20:21)
[2021-12-08] MEDS: quetiapine 300 mg Tablet PO (20:21)
[2021-12-08 20:32] VITALS: BP 112/81; PULSE 87; RESP 16; TEMP 36.6; O2SAT 98
[2021-12-09 06:00] VITALS: BP 87/45; PULSE 94; RESP 17; TEMP 36.7; O2SAT 97
[2021-12-09] MEDS: ARIPiprazole 10 mg Tablet 20 MG PO (08:16)
[2021-12-09] MEDS: OLANZapine 5 mg ODT PO ×2 (08:16→15:22)
[2021-12-09] MEDS: hyDROXYzine 25 mg Capsule 50 MG PO (11:13)
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
[2021-12-09] MEDS: lithium carbonate 300 mg Capsule PO ×2 (13:54→17:02)
[2021-12-09 14:00] VITALS: BP 111/71; PULSE 91; RESP 16; TEMP 36.6; O2SAT 98
--- NOTE | 2021-12-09 14:28 | PC.SOCIAL ---
Patient attended and participated in group.
--- NOTE | 2021-12-09 15:23 | PC.NURSE ---
Patient at nurses station voicing c/o anxiety and restlessness. Zydis 5m po given for this.
[2021-12-09] MEDS: trazodone 50 mg Tablet PO (20:21)
[2021-12-09] MEDS: quetiapine 300 mg Tablet PO (20:22)
[2021-12-09 21:15] VITALS: BP 107/72; PULSE 94; RESP 16; TEMP 36.5; O2SAT 95
[2021-12-10 06:00] VITALS: BP 96/62; PULSE 114; RESP 17; TEMP 36.5; O2SAT 95
[2021-12-10] MEDS: acetaminophen 325 mg Tablet 650 MG PO (06:05)
[2021-12-10 08:23] LABS: Bacteria Urine 1+ /hpf; Bilirubin Urine Neg (Negative); Blood Urine Neg (Negative); Glucose Urine UA Norm (Normal); Ketones Urine Negative (Negative); Leukocyte Esterase Urine 2+ (Negative); Nitrate Urine Negative (Negative); Protein Urine Neg (Negative); RBC Urine 0-4 /hpf (0-2); Squamous Epithelial Cell Urine 0-4 /hpf (0-5); Urine Appearance Hazy (CLEAR); Urine Color Yellow (Yellow); Urobilinogen Urine Norm (Negative); WBC Urine RARE /hpf (0-5); pH Urine 7 (5-7)
[2021-12-10] MEDS: ARIPiprazole 10 mg Tablet 20 MG PO (08:34)
[2021-12-10] MEDS: nicotine 2 mg Gum BUCCAL ×2 (08:35→10:23)
[2021-12-10] MEDS: lithium carbonate 300 mg Capsule PO ×2 (08:35→20:54)
[2021-12-10] MEDS: OLANZapine 5 mg ODT PO (10:23)
[2021-12-10] MEDS: hyDROXYzine 25 mg Capsule 50 MG PO (13:51)
--- NOTE | 2021-12-10 13:51 | P.NPUPN_ITS ---
Subjective NPU Subjective: She says that she is feeling much better. She does not feel that she has side effects from the lithium. She feels like she is not manic. She slept well last night. She wants to go and live with her grandmother. She says that she is concerned about an increased appetite and gaining weight. She says that she gained 7 pounds on the last admission. She says that all she needs to do is get outside with her grandmother and she will be able to stop gaining weight and maybe be able to lose weight. Mental Status Exam MSE Comments: This is a 26-year-old appropriate weight female who ap pears approximately her stated age and is in no acute distress.? She is pleasant and cooperative with the evaluation.? Her grooming is fairly good.? She is in hospital scrubs. psychomotor activity is mildly increased. Speech is mildly pressured, normal volume, good articulation. Alert, oriented X3 Attention and concentration appears to be normal. Memory is intact Mood is anxious and worried about her situation Affect mildly dysphoric. Thought process is logical and goal-directed. Thought content:? Denies auditory or visual hallucinations. No delusions or paranoia are noted.? She had suicidal and homicidal ideation yesterday but denies both today. Fund of knowledge is average. Insight and judgment appear to be poor. Impulse control is poor. Cognition: Patient Appearance: Appropriate Level of Consciousness: Awake and Alert Patient Cognition Impaired: No Ability to Follow Directions: Good Patient Orientation (long list): Person, Place, Name, Age and Birthday Comprehension Ability: No Impairment Hallucination Type: None Delusion Description: Paranoid Ideation Thought Process: Appropriate and Tangential Affect: Affect Description: Appropriate Behavior: Patient Behavior: Appropriate Speech Pattern: Appropriate Vitals/I&O/Wt Last Vital Signs Temp 97.7 F 12/10/21 06:00 Pulse 114 H 12/10/21 06:00 Resp 17 12/10/21 06:00 BP 96/62 12/10/21 06:00 Pulse Ox 95 12/10/21 06:00 Data NPU : 12/08/21 11:55 12/08/21 11:55 A&P Assessment and plan (1) Depression with suicidal ideation: Status: Acute (2) Bipolar disorder, current episode manic severe with psychotic features: Status: Acute (3) Hypothyroid: Status: Acute Plan This is a 26-year-old female with multiple recent admissions for mayra who reported homicidal and suicidal ideation yesterday. Plan: 1. Continue current medication. Increase lithium to 3 times daily tomorrow. 2. Continue every 15 minute checks for safety. 3. Encourage individual, group and milieu therapies. 4. Encourage sober living treatment after discharge at the highest level of care to which she is willing to commit. 5. We will monitor for safety for herself in the community prior to discharge. Involuntary Hold Information 96 Hour Hold: 96 Hour Involuntary Admission: No Attestations NPU Medical Necessity Statement*: inpatient hospitalization is medically necessary and the clinically appropriate intervention at this time. We will initiate medications and make changes as indicated. 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
[2021-12-10 14:00] VITALS: BP 105/70; PULSE 101; RESP 18; TEMP 36.5; O2SAT 96
[2021-12-10 20:28] VITALS: BP 101/65; PULSE 106; RESP 18; TEMP 36.7; O2SAT 99
[2021-12-10] MEDS: trazodone 50 mg Tablet PO (20:54)
[2021-12-10] MEDS: quetiapine 300 mg Tablet PO (20:54)
[2021-12-11 06:00] VITALS: BP 102/69; PULSE 88; RESP 16; TEMP 36.7; O2SAT 97
[2021-12-11] MEDS: hyDROXYzine 25 mg Capsule 50 MG PO (08:33)
[2021-12-11] MEDS: ARIPiprazole 10 mg Tablet 20 MG PO (08:33)
[2021-12-11] MEDS: ibuprofen 800 mg tablet PO ×2 (08:33→17:37)
[2021-12-11] MEDS: lithium carbonate 300 mg Capsule PO ×3 (08:34→20:33)
--- NOTE | 2021-12-11 10:41 | W.PM.NPUPNS ---
Subjective NPU Subjective: She says that she is feeling much better. She does not feel that she has side effects from the lithium. She will have lithium 3 times a day for the first time today.. She slept well last night. She wants to go and live with her grandmother. She is still staying and going to the bathroom more. Mental Status Exam MSE Comments: This is a 26-year-old appropriate weight female who appears approximately her stated age and is in no acute distress.? She is pleasant and cooperative with the evaluation.? Her grooming is fairly good.? She is in hospital scrubs. psychomotor activity is mildly increased. Speech is mildly pressured, normal volume, good articulation. Alert, oriented X3 Attention and concentration appears to be normal. Memory is intact Mood is better and less anxious. Affect mildly dysphoric. Thought process is logical and goal-directed. Thought content:? Denies auditory or visual hallucinations. No delusions or paranoia are noted.? She had suicidal and homicidal ideation yesterday but denies both today. Fund of knowledge is average. Insight and judgment appear to be poor. Impulse control is poor. Cognition: Patient Appearance: Appropriate Level of Consciousness: Awake and Alert Patient Cognition Impaired: No Ability to Follow Directions: Good Patient Orientation (long list): Person, Place, Name, Age and Birthday Comprehension Ability: No Impairment Hallucination Type: None Delusion Description: Paranoid Ideation Thought Process: Appropriate and Tangential Affect: Affect Description: Appropriate Behavior: Patient Behavior: Appropriate Speech Pattern: Appropriate Vitals/I&O/Wt Last Vital Signs Temp 98.0 F 12/11/21 06:00 Pulse 88 12/11/21 06:00 Resp 16 12/11/21 06:00 BP 102/69 12/11/21 06:00 Pulse Ox 97 12/11/21 06:00 Data NPU : 12/08/21 11:55 12/08/21 11:55 A&P Assessment and plan (1) Depression with suicidal ideation: Status: Acute (2) Bipolar disorder, current episode manic severe with psychotic features: Status: Acute (3) Hypothyroid: Status: Acute Plan This is a 26-year-old female with multiple recent admissions for mayra who reported homicidal and suicidal ideation yesterday. Plan: 1. Continue current medication. Increase lithium to 3 times daily. 2. Continue every 15 minute checks for safety. 3. Encourage individual, group and milieu therapies. 4. Encourage sober living treatment after discharge at the highest level of care to which she is willing to commit. 5. We will monitor for safety for herself in the community prior to discharge. Involuntary Hold Information 96 Hour Hold: 96 Hour Involuntary Admission: No Attestations NPU Medical Necessity Statement*: Inpatient hospitalization is medically necessary and the clinically appropriate intervention at this time. We will initiate medications and make changes as indicated. Coding Level of Care Code Acute [facility] Cente[facility] for [facility] Diagnoses Depression with suicidal ideation F32.A; R45.851 Bipolar disorder, current episode manic severe with psychotic features F31.2 Hypothyroid E03.9
[2021-12-11 14:00] VITALS: BP 116/79; PULSE 95; RESP 20; TEMP 36.6; O2SAT 100
[2021-12-11] MEDS: quetiapine 300 mg Tablet PO (20:33)
[2021-12-11] MEDS: trazodone 50 mg Tablet PO (20:33)
[2021-12-11 21:10] VITALS: BP 104/69; PULSE 99; RESP 16; TEMP 36.7; O2SAT 94
[2021-12-12 06:00] VITALS: BP 110/77; PULSE 113; RESP 18; TEMP 36.4; O2SAT 98
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
[2021-12-12 08:07] VITALS: BP 110/77; PULSE 113; RESP 18; TEMP 36.4; O2SAT 98
[2021-12-12] MEDS: ARIPiprazole 10 mg Tablet 20 MG PO (08:11)
[2021-12-12] MEDS: lithium carbonate 300 mg Capsule PO (08:11)
[2021-12-12] MEDS: OLANZapine 5 mg ODT PO (08:24)
--- NOTE | 2021-12-12 10:53 | PC.NURSE ---
0800 administered 5mg zyprexa zydis for pt experiencing anxiety.
== END 2021-12-12 12:55 | disposition home or self-care (01) | DRG 885 ==
LOC: ER 11:19 → NP 11:55
PROVIDERS: Admitting Provider Psychiatry & Neurology Psychiatry; Emergency Provider Emergency Medicine; Visit Provider Psychiatry & Neurology Psychiatry
DX: F31.2 Bipolar disorder, current episode manic severe with psychotic features (principal); R45.851 Suicidal ideations; R45.850 Homicidal ideations; E03.9 Hypothyroidism, unspecified
CPT/HCPCS: 80053; 80306; 80307; 81001; 81025; 83690; 85025; 97150; 97165; 99285; Q0162

== ENCOUNTER → 2021-12-17 11:14 | Outpatient (BNVA) | payer MEDICAID, SELFPAY | PROVIDERS: Visit Provider Nurse Practitioner | DX: F31.10 Bipolar disorder, current episode manic without psychotic features, unspecified (principal); F43.12 Post-traumatic stress disorder, chronic; F17.290 Nicotine dependence, other tobacco product, uncomplicated; F12.21 Cannabis dependence, in remission; F10.21 Alcohol dependence, in remission | CPT/HCPCS: 90792 ==

== ENCOUNTER → 2021-12-26 08:04 | Outpatient (BNVA) | payer MEDICAID, SELFPAY | PROVIDERS: Visit Provider Nurse Practitioner | DX: F31.2 Bipolar disorder, current episode manic severe with psychotic features (principal); F43.12 Post-traumatic stress disorder, chronic; F17.290 Nicotine dependence, other tobacco product, uncomplicated; F12.21 Cannabis dependence, in remission; Z79.899 Other long term (current) drug therapy; F10.21 Alcohol dependence, in remission | CPT/HCPCS: 80061; 80178; 83036; 96372; 99214 ==